=== PATIENT | male | born 2000 | race Caucasian/White ===

== ENCOUNTER 2022-06-27 03:51 | Inpatient (IN) ==
[2022-06-27] MEDS ORDERED: SODIUM CHLORIDE 0.9% 1000ML 1,000 ML IV ONE ×2 (04:36→10:55)
[2022-06-27 05:15] LABS: Basophils # (auto) 0.01 K/uL (0-0.2); Basophils % (auto) 0.3 %; Hematocrit (blood only) 22.1 % (42.0-52.0); Hemoglobin 7.1 g/dl (14.0-18.0); Immature Granulocytes # (auto) 0.03 K/uL (0.01-0.20); Lymphocytes # (auto) 0.82 K/uL (1.2-3.4); Mean Corpuscular Hemoglobin 31.3 pg (25.0-34.0); Mean Corpuscular Hgb Conc 32.1 g/dL (32.0-36.0); Mean Corpuscular Volume 97.4 fL (80.0-100.0); Mean Platelet Volume 10.9 fL (9.4-12.4); Monocytes # (auto) 0.22 K/uL (0.11-0.59); Monocytes % (auto) 7.2 %; Neutrophils # (auto) 1.96 K/uL (1.40-6.50); Neutrophils % (auto) 64.5 %; Platelet Count 106 K/uL (130-400); RDW Standard Deviation 45.9 fL (36.4-46.3); Red Blood Count 2.27 M/uL (4.70-6.10); White Blood Count 3.04 K/ul (4.8-10.8)
[2022-06-27 05:23] LABS: Acetaminophen < 3 ug/ml (10-30); Salicylate < 3.0 mg/dl (3.0-30)
[2022-06-27 05:27] LABS: Alanine Aminotransferase 20 U/L (7-52); Albumin Globulin Ratio 1.5 (0.9-2); Albumin Level 4.8 gm/dl (3.4-5.0); Alkaline Phosphatase 71 U/L (34-104); Anion Gap 11 (3-11); Aspartate Aminotransferase 39 U/L (13-39); Bilirubin,Total 0.7 mg/dl (0.2-1.0); Blood Urea Nitrogen 9 mg/dl (6-23); Calcium 9.1 mg/dl (8.5-10.1); Carbon Dioxide 24 mmol/L (21-32); Chloride 107 mmol/L (98-107); Est GFR (African American) 124.1 ml/min; Est GFR (Non-African American) 107.1 ml/min; Globulin 3.2 gm/dl (2.5-4.0); Glucose 91 mg/dl (70-99(Fasting)); Sodium 142 mmol/L (136-145)
[2022-06-27 05:42] LABS: RBC Morphology Unremarkable
[2022-06-27 06:39] LABS: Basophils # (auto) 0.04 K/uL (0-0.2); Basophils % (auto) 0.6 %; Eosinophils # (auto) 0.01 K/uL (0-0.50); Eosinophils % (auto) 0.1 %; Hematocrit (blood only) 43.1 % (42.0-52.0); Hemoglobin 14.7 g/dl (14.0-18.0); Immature Granulocytes # (auto) 0.07 K/uL (0.01-0.20); Lymphocytes # (auto) 2.15 K/uL (1.2-3.4); Lymphocytes % (auto) 29.6 %; Mean Corpuscular Hemoglobin 30.7 pg (25.0-34.0); Mean Corpuscular Hgb Conc 34.1 g/dL (32.0-36.0); Monocytes # (auto) 0.75 K/uL (0.11-0.59); Monocytes % (auto) 10.3 %; Neutrophils # (auto) 4.24 K/uL (1.40-6.50); Neutrophils % (auto) 58.4 %; Platelet Count 224 K/uL (130-400); RDW Coefficient of Variation 12.9 % (11.5-14.5); RDW Standard Deviation 42.2 fL (36.4-46.3); Red Blood Count 4.79 M/uL (4.70-6.10); White Blood Count 7.26 K/ul (4.8-10.8)
--- NOTE | 2022-06-27 06:57 | Emergency Department Note ---
Impression & Plan Intentional overdose The case was signed out at change of shift to Dr. Richey ED Provider Note NAME: DAFNE VELASQUEZ AGE: 21 SEX: M ARRIVES VIA: Ambulance INFORMANT: Patient and EMS ED PROVIDER(S): Yamilex Logan DO CHIEF COMPLAINT: Intentional overdose PLAN: Disposition: The case was signed out to Dr. Richey awaiting evaluation by ED psychiatric rehabilitation case coordinator Condition: Stable MEDICAL DECISION MAKING: This is a 21-year-old male patient who took an intentional overdose of clonazepam and fluoxetine in an effort to kill himself. He also admits to drinking alcohol and taking Jaz earlier in the evening. Patient does have a history of depression and anxiety. The patient was awaiting sobriety so that he can be formally evaluated from a psychiatric standpoint. Observation began at 410 and was necessary in order for the patient to become more sober and to preclude an unnecessary admission. Patient was frequently evaluated during their observation. Observation is ongoing and the case was signed out Triage Nursing notes reviewed and agree with them. Vital Signs: reviewed and remarkable for tachycardia Differential diagnosis: Accidental overdose, polysubstance overdose, alcohol overdose, suicide attempt ER treatment provided: Cardiac monitoring Twelve-lead EKG IV normal saline bolus Diagnostics interpreted by me: ECG: Normal sinus rhythm at [address] segment elevation or signs of ischemia. There are inverted P waves in leads V2 and V3. There is no obvious ectopy. Cardiac Monitoring: Normal sinus rhythm at 93 Laboratory studies: See below HPI: 21/M arrives for evaluation of overdose. Patient admits to drinking alcohol and taking Jaz earlier this evening. He admits to trying to kill himself by taking clonazepam and fluoxetine. He states that he finished off a bottle of the clonazepam and fluoxetine. He believes that there was approximately 10 clonazepam left and approximately 20 fluoxetine left in the 2 bottles. The fluoxetine were 40 mg and the clonazepam more 0.5 mg. Other medications found near him were bupropion, Vistaril, and propranolol. Patient states that he hoped that the overdose would stop his heart. PAST MEDICAL HISTORY:Depression and anxiety PAST SURGICAL HISTORY:See Below FAMILY HISTORY:See Below SOCIAL HISTORY:Patient is a student at [employer]; he is from [place], [place] HOME MEDICATIONS:See list ALLERGIES:None VITALS:See Below PHYSICAL EXAMINATION: HEENT: Head - normocephalic and atraumatic. Pupils are equal, round, and reactive to light. Extraocular eye muscles are intact, and sclera are anic teric. Nose - moist nasal mucosa without discharge. Mouth - moist buccal mucosa. Oropharynx is nonerythematous and there is no tonsillar exudate or edema noted. Neck: Supple; no cervical lymphadenopathy appreciated Heart: Tachycardic rate and rhythm. There is a normal S1 and S2 with no murmurs, clicks, or gallops appreciated. Lungs: Clear to auscultation bilaterally with no wheezes, rales, or rhonchi. Abdomen: Soft, completely nontender, nondistended, with good bowel sounds. There are no palpable pulsatile masses or hepatosplenomegaly. There is no guarding, rigidity, or rebound noted. Extremities: No evidence of cyanosis, clubbing, or edema. There are easily palpable peripheral pulses. Skin: warm and dry with good turgor and no rashes. Psych: The patient was slightly lethargic on exam but does admit to taking an overdose of fluoxetine and clonazepam in an effort to kill himself. He states that he quite frequently feels "blue." ED COURSE: Times/Reassessments: 410: The patient was evaluated in room B7. A complete history and physical was performed. An IV lock was initiated and labs were drawn as above. The patient was bolused with IV normal saline solution. A twelve-lead EKG was obtained as described above. An order was placed for continuous cardiac monitoring. The patient was in a normal sinus rhythm at a rate of 93. The patient was made one-to-one because of his suicide attempt. The patient was frequently assessed during observation. Yamilex Logan DO Past Med/Surg History Social History Smoking Status: Never smoker Feels Safe at Home: Yes Gender Identity: Male Home Meds Home Medications Medication Instructions Recorded Confirmed bupropion HCl 1 tab 1XD 06/27/22 06/27/22 bupropion HCl 150 mg tablet,12 hr mg PO 06/27/22 sustained-release clonazepam 1 tab 1XD PRN Anxiety 06/27/22 06/27/22 fluoxetine 20 mg capsule mg 06/27/22 fluoxetine 40 mg capsule mg 06/27/22 hydroxyzine pamoate 25 mg capsule mg 06/27/22 propranolol 10 mg tablet mg 06/27/22 Results & Data (ED) Vital Signs Vital Signs - 24 hr 06/27/22 04:08 06/27/22 04:39 06/27/22 04:05 Temperature 36.6 C Temperature Source Oral Pulse Rate 106 H 104 H Pulse Rate from SpO2 Sensor 105 H Respiratory Rate 22 12 Respiratory Effort / Characteristics Non-Labored Spontaneous Respiratory Depth Normal Blood Pressure 116/87 Blood Pressure Mean 96 Pulse Oximetry 96 97 98 Oxygen Delivery Method Room Air Room Air Room Air Sepsis Recent Fever Within 48 Hours No Sepsis New/Unexplained Change in Mental Status N/A Sepsis Action Taken by Nursing No Action Required 06/27/22 04:30 06/27/22 04:47 06/27/22 04:05 Temperature Temperature Source Pulse Rate 103 H 96 H 108 H Pulse Rate from SpO2 Sensor 104 H 97 H Respiratory Rate 15 14 Respiratory Effort / Characteristics Respiratory Depth Blood Pressure 124/77 Blood Pressure Mean 92 Pulse Oximetry 96 98 Oxygen Delivery Method Room Air Room Air Sepsis Recent Fever Within 48 Hours Sepsis New/Unexplained Change in Mental Status Sepsis Action Taken by Nursing 06/27/22 05:30 06/27/22 06:00 06/27/22 08:06 Temperature Temperature Source Pulse Rate 96 H 93 H 88 Pulse Rate from SpO2 Sensor 96 H 94 H Respiratory Rate 14 18 Respiratory Effort / Characteristics Respiratory Depth Blood Pressure 137/73 118/70 Blood Pressure Mean 94 86 Pulse Oximetry 97 96 Oxygen Delivery Method Room Air Room Air Sepsis Recent Fever Within 48 Hours Sepsis New/Unexplained Change in Mental Status Sepsis Action Taken by Nursing 06/27/22 07:00 06/27/22 07:00 06/27/22 07:30 Temperature Temperature Source Pulse Rate 92 H Pulse Rate from SpO2 Sensor 92 H Respiratory Rate 18 Respiratory Effort / Characteristics Respiratory Depth Blood Pressure 98/39 L 90/42 L Blood Pressure Mean 58 58 Pulse Oximetry 95 Oxygen Delivery Method Sepsis Recent Fever Within 48 Hours Sepsis New/Unexplained Change in Mental Status Sepsis Action Taken by Nursing 06/27/22 07:30 06/27/22 08:00 06/27/22 08:30 Temperature Temperature Source Pulse Rate 90 92 H Pulse Rate from SpO2 Sensor 90 91 H Respiratory Rate 17 15 Respiratory Effort / Characteristics Respiratory Depth Blood Pressure 132/72 Blood Pressure Mean 92 Pulse Oximetry 96 95 Oxygen Delivery Method Sepsis Recent Fever Within 48 Hours Sepsis New/Unexplained Change in Mental Status Sepsis Action Taken by Nursing 06/27/22 08:30 06/27/22 09:00 06/27/22 09:00 Temperature Temperature Source Pulse Rate 96 H 97 H Pulse Rate from SpO2 Sensor 96 H 96 H Respiratory Rate 15 4 L Respiratory Effort / Characteristics Respiratory Depth Blood Pressure 131/88 Blood Pressure Mean 102 Pulse Oximetry 100 98 Oxygen Delivery Method Sepsis Recent Fever Within 48 Hours Sepsis New/Unexplained Change in Mental Status Sepsis Action Taken by Nursing 06/27/22 09:30 06/27/22 09:52 06/27/22 09:52 Temperature Temperature Source Pulse Rate 101 H 100 H Pulse Rate from SpO2 Sensor 103 H Respiratory Rate 10 L 23 Respiratory Effort / Characteristics Respiratory Depth Blood Pressure 120/82 Blood Pressure Mean 94 Pulse Oximetry 97 Oxygen Delivery Method Sepsis Recent Fever Within 48 Hours Sepsis New/Unexplained Change in Mental Status Sepsis Action Taken by Nursing 06/27/22 10:00 06/27/22 10:00 06/27/22 10:30 Temperature Temperature Source Pulse Rate 101 H 97 H Pulse Rate from SpO2 Sensor 101 H 96 H Respiratory Rate 18 23 Respiratory Effort / Characteristics Respiratory Depth Blood Pressure 127/73 Blood Pressure Mean 91 Pulse Oximetry 100 99 Oxygen Delivery Method Sepsis Recent Fever Within 48 Hours Sepsis New/Unexplained Change in Mental Status Sepsis Action Taken by Nursing 06/27/22 11:00 06/27/22 11:00 06/27/22 11:30 Temperature Temperature Source Pulse Rate 102 H 98 H Pulse Rate from SpO2 Sensor 101 H 97 H Respiratory Rate 19 24 Respiratory Effort / Characteristics Respiratory Depth Blood Pressure 118/75 Blood Pressure Mean 89 Pulse Oximetry 98 99 Oxygen Delivery Method Room Air Room Air Sepsis Recent Fever Within 48 Hours Sepsis New/Unexplained Change in Mental Status Sepsis Action Taken by Nursing 06/27/22 12:00 06/27/22 12:00 06/27/22 12:06 Temperature Temperature Source Pulse Rate 102 H 99 H Pulse Rate from SpO2 Sensor 102 H Respiratory Rate 21 Respiratory Effort / Characteristics Respiratory Depth Blood Pressure 119/67 Blood Pressure Mean 84 Pulse Oximetry 99 Oxygen Delivery Method Room Air Sepsis Recent Fever Within 48 Hours Sepsis New/Unexplained Change in Mental Status Sepsis Action Taken by Nursing 06/27/22 12:30 06/27/22 13:00 06/27/22 13:00 Temperature Temperature Source Pulse Rate 104 H 98 H Pulse Rate from SpO2 Sensor 105 H 99 H Respiratory Rate 18 25 H Respiratory Effort / Characteristics Respiratory Depth Blood Pressure 115/73 Blood Pressure Mean 87 Pulse Oximetry 98 98 Oxygen Delivery Method Room Air Room Air Sepsis Recent Fever Within 48 Hours Sepsis New/Unexplained Change in Mental Status Sepsis Action Taken by Nursing 06/27/22 13:40 06/27/22 13:43 06/27/22 13:43 Temperature Temperature Source Pulse Rate 101 H Pulse Rate from SpO2 Sensor 111 H 101 H Respiratory Rate 23 Respiratory Effort / Characteristics Respiratory Depth Blood Pressure 132/97 Blood Pressure Mean 108 Pulse Oximetry 97 96 Oxygen Delivery Method Room Air Room Air Sepsis Recent Fever Within 48 Hours Sepsis New/Unexplained Change in Mental Status Sepsis Action Taken by Nursing 06/27/22 14:00 06/27/22 14:00 06/27/22 14:30 Temperature Temperature Source Pulse Rate 98 H Pulse Rate from SpO2 Sensor 97 H Respiratory Rate 22 Respiratory Effort / Characteristics Respiratory Depth Blood Pressure 122/75 119/62 Blood Pressure Mean 90 81 Pulse Oximetry 97 Oxygen Delivery Method Room Air Sepsis Recent Fever Within 48 Hours Sepsis New/Unexplained Change in Mental Status Sepsis Action Taken by Nursing 06/27/22 14:30 Temperature Temperature Source Pulse Rate 96 H Pulse Rate from SpO2 Sensor 96 H Respiratory Rate 22 Respiratory Effort / Characteristics Respiratory Depth Blood Pressure Blood Pressure Mean Pulse Oximetry 95 Oxygen Delivery Method Room Air Sepsis Recent Fever Within 48 Hours Sepsis New/Unexplained Change in Mental Status Sepsis Action Taken by Nursing Laboratory Data 06/27/22 05:56 06/27/22 04:15 Lab Results 06/27/22 06/27/22 06/27/22 Range/Units 04:15 04:15 04:15 WBC 3.04 L (4.8-10.8) K/ul RBC 2.27 L (4.70-6.10) M/uL Hgb 7.1 L (14.0-18.0) g/dl Hct 22.1 L (42.0-52.0) % MCV 97.4 (80.0-100.0) fL MCH 31.3 (25.0-34.0) pg MCHC 32.1 (32.0-36.0) g/dL RDW Std Deviation 45.9 (36.4-46.3) fL RDW Coeff of Chelita 13.0 (11.5-14.5) % Plt Count 106 L (130-400) K/uL MPV 10.9 (9.4-12.4) fL Immature Gran % (Auto) 1.0 % Neut % (Auto) 64.5 % Lymph % (Auto) 27.0 % Holmes % (Auto) 7.2 % Eos % (Auto) 0.0 % Baso % (Auto) 0.3 % Neut # (Auto) 1.96 (1.40-6.50) K/uL Lymph # (Auto) 0.82 L (1.2-3.4) K/uL Holmes # (Auto) 0.22 (0.11-0.59) K/uL Eos # (Auto) 0.00 (0-0.50) K/uL Baso # (Auto) 0.01 (0-0.2) K/uL Immature Gran # (Auto) 0.03 (0.01-0.20) K/uL RBC Morphology Unremarkable Sodium 142 (136-145) mmol/L Potassium 4.0 (3.5-5.1) mmol/L Chloride 107 (98-107) mmol/L Carbon Dioxide 24 (21-32) mmol/L Anion Gap 11 (3-11) BUN 9 (6-23) mg/dl Creatinine 1.00 (0.6-1.4) mg/dl Est Cr Clr Drug Dosing Not Reportable Est GFR ( Amer) 124.1 ml/min Est GFR (Non-Af Amer) 107.1 ml/min BUN/Creatinine Ratio 9.0 L (10-20) Glucose 91 (70-99(Fasting)) mg/dl Calcium 9.1 (8.5-10.1) mg/dl Total Bilirubin 0.7 (0.2-1.0) mg/dl AST 39 (13-39) U/L ALT 20 (7-52) U/L Alkaline Phosphatase 71 (34-104) U/L Total Protein 8.0 (6.0-8.3) gm/dl Albumin 4.8 (3.4-5.0) gm/dl Globulin 3.2 (2.5-4.0) gm/dl Albumin/Globulin Ratio 1.5 (0.9-2) Urine Color Urine Appearance (Clear) Urine pH (4.5-7.5) Ur Specific [place] (1.000-1.030) Urine Protein (Negative) Urine Glucose (UA) (Negative) Urine Ketones (Negative) Urine Blood (Negative) Urine Nitrite (Negative) Urine Bilirubin (Negative) Urine Urobilinogen (Negative) Ur Leukocyte Esterase (Negative) Salicylates < 3.0 L (3.0-30) mg/dl Urine Opiates Screen (Neg) Ur Methadone, Qual (Neg) Acetaminophen < 3 L (10-30) ug/ml Urine Barbiturates (Neg) Ur Phencyclidine (PCP) (Neg) U Amphetamin/Meth Scrn (Neg) MDMA (Ecstasy) Screen (Neg) U Benzodiazepines Scrn (Neg) Ur Cocaine Metabolite (Neg) U Marijuana (THC) Screen (Neg) Ethyl Alcohol mg/dL (<10.0) mg/dl SARS-CoV-2, RNA, NAAT (NEGATIVE) 06/27/22 06/27/22 06/27/22 Range/Units 04:15 04:41 05:56 WBC 7.26 (4.8-10.8) K/ul RBC 4.79 (4.70-6.10) M/uL Hgb 14.7 D (14.0-18.0) g/dl Hct 43.1 (42.0-52.0) % MCV 90.0 D (80.0-100.0) fL MCH 30.7 (25.0-34.0) pg MCHC 34.1 (32.0-36.0) g/dL RDW Std Deviation 42.2 (36.4-46.3) fL RDW Coeff of Chelita 12.9 (11.5-14.5) % Plt Count 224 D (130-400) K/uL MPV 11.0 (9.4-12.4) fL Immature Gran % (Auto) 1.0 % Neut % (Auto) 58.4 % Lymph % (Auto) 29.6 % Holmes % (Auto) 10.3 % Eos % (Auto) 0.1 % Baso % (Auto) 0.6 % Neut # (Auto) 4.24 (1.40-6.50) K/uL Lymph # (Auto) 2.15 (1.2-3.4) K/uL Holmes # (Auto) 0.75 H (0.11-0.59) K/uL Eos # (Auto) 0.01 (0-0.50) K/uL Baso # (Auto) 0.04 (0-0.2) K/uL Immature Gran # (Auto) 0.07 (0.01-0.20) K/uL RBC Morphology Sodium (136-145) mmol/L Potassium (3.5-5.1) mmol/L Chloride (98-107) mmol/L Carbon Dioxide (21-32) mmol/L Anion Gap (3-11) BUN (6-23) mg/dl Creatinine (0.6-1.4) mg/dl Est Cr Clr Drug Dosing Est GFR ( Amer) ml/min Est GFR (Non-Af Amer) ml/min BUN/Creatinine Ratio (10-20) Glucose (70-99(Fasting)) mg/dl Calcium (8.5-10.1) mg/dl Total Bilirubin (0.2-1.0) mg/dl AST (13-39) U/L ALT (7-52) U/L Alkaline Phosphatase (34-104) U/L Total Protein (6.0-8.3) gm/dl Albumin (3.4-5.0) gm/dl Globulin (2.5-4.0) gm/dl Albumin/Globulin Ratio (0.9-2) Urine Color Urine Appearance (Clear) Urine pH (4.5-7.5) Ur Specific [place] (1.000-1.030) Urine Protein (Negative) Urine Glucose (UA) (Negative) Urine Ketones (Negative) Urine Blood (Negative) Urine Nitrite (Negative) Urine Bilirubin (Negative) Urine Urobilinogen (Negative) Ur Leukocyte Esterase (Negative) Salicylates (3.0-30) mg/dl Urine Opiates Screen (Neg) Ur Methadone, Qual (Neg) Acetaminophen (10-30) ug/ml Urine Barbiturates (Neg) Ur Phencyclidine (PCP) (Neg) U Amphetamin/Meth Scrn (Neg) MDMA (Ecstasy) Screen (Neg) U Benzodiazepines Scrn (Neg) Ur Cocaine Metabolite (Neg) U Marijuana (THC) Screen (Neg) Ethyl Alcohol mg/dL 205.8 H (<10.0) mg/dl SARS-CoV-2, RNA, NAAT NEGATIVE (NEGATIVE) 06/27/22 06/27/22 Range/Units 10:35 10:35 WBC (4.8-10.8) K/ul RBC (4.70-6.10) M/uL Hgb (14.0-18.0) g/dl Hct (42.0-52.0) % MCV (80.0-100.0) fL MCH (25.0-34.0) pg MCHC (32.0-36.0) g/dL RDW Std Deviation (36.4-46.3) fL RDW Coeff of Chelita (11.5-14.5) % Plt Count (130-400) K/uL MPV (9.4-12.4) fL Immature Gran % (Auto) % Neut % (Auto) % Lymph % (Auto) % Holmes % (Auto) % Eos % (Auto) % Baso % (Auto) % Neut # (Auto) (1.40-6.50) K/uL Lymph # (Auto) (1.2-3.4) K/uL Holmes # (Auto) (0.11-0.59) K/uL Eos # (Auto) (0-0.50) K/uL Baso # (Auto) (0-0.2) K/uL Immature Gran # (Auto) (0.01-0.20) K/uL RBC Morphology Sodium (136-145) mmol/L Potassium (3.5-5.1) mmol/L Chloride (98-107) mmol/L Carbon Dioxide (21-32) mmol/L Anion Gap (3-11) BUN (6-23) mg/dl Creatinine (0.6-1.4) mg/dl Est Cr Clr Drug Dosing Est GFR ( Amer) ml/min Est GFR (Non-Af Amer) ml/min BUN/Creatinine Ratio (10-20) Glucose (70-99(Fasting)) mg/dl Calcium (8.5-10.1) mg/dl Total Bilirubin (0.2-1.0) mg/dl AST (13-39) U/L ALT (7-52) U/L Alkaline Phosphatase (34-104) U/L Total Protein (6.0-8.3) gm/dl Albumin (3.4-5.0) gm/dl Globulin (2.5-4.0) gm/dl Albumin/Globulin Ratio (0.9-2) Urine Color Yellow Urine Appearance Clear (Clear) Urine pH 5.5 (4.5-7.5) Ur Specific [place] 1.009 (1.000-1.030) Urine Protein Negative (Negative) Urine Glucose (UA) Negative (Negative) Urine Ketones Negative (Negative) Urine Blood Negative (Negative) Urine Nitrite Negative (Negative) Urine Bilirubin Negative (Negative) Urine Urobilinogen Negative (Negative) Ur Leukocyte Esterase Negative (Negative) Salicylates (3.0-30) mg/dl Urine Opiates Screen Neg (Neg) Ur Methadone, Qual Neg (Neg) Acetaminophen (10-30) ug/ml Urine Barbiturates Neg (Neg) Ur Phencyclidine (PCP) Neg (Neg) U Amphetamin/Meth Scrn Pos H (Neg) MDMA (Ecstasy) Screen Pos H (Neg) U Benzodiazepines Scrn Neg (Neg) Ur Cocaine Metabolite Neg (Neg) U Marijuana (THC) Screen Neg (Neg) Ethyl Alcohol mg/dL (<10.0) mg/dl SARS-CoV-2, RNA, NAAT (NEGATIVE) Administered Medications Discontinued Medications Famotidine (Famotidine 20 Mg Tab) 20 mg PO NOW ONE Stop: 06/27/22 13:48 Last Admin: 06/27/22 13:55 Dose: 20 mg Documented By: LILLIAM Sodium Chloride (Nss 1000ml) 1,000 mls @ 999 mls/hr IV .Q1H1M ONE Stop: 06/27/22 05:36 Last Infusion: 06/27/22 05:46 Dose: 0 mls/hr Documented By: Admin: 06/27/22 04:45 Dose: 999 mls/hr Documented By: MARTA Sodium Chloride (Nss 1000ml) 1,000 mls @ 999 mls/hr IV .Q1H1M ONE Stop: 06/27/22 11:55 Last Infusion: 06/27/22 12:14 Dose: 0 mls/hr Documented By: Admin: 06/27/22 11:13 Dose: 999 mls/hr Documented By: SONJA Lorazepam (Lorazepam 1 Mg Tab) 1 mg SL NOW STA Stop: 06/27/22 09:21 Last Admin: 06/27/22 09:27 Dose: 1 mg Documented By: Ondansetron HCl (Ondansetron 4 Mg Od Tab) 4 mg PO NOW STA Stop: 06/27/22 13:48 Last Admin: 06/27/22 13:55 Dose: 4 mg Documented By: AMS Discharge Plan Visit Data Chief Complaint: Overdose (Intentional) Stated Complaint: OVERDOSE ED Provider: Suni Richey Discharge Problem: Intentional overdose Forms Stand Alone Forms: [facility], Suicide Prevention Resources Prescriptions Prescriptions: No Action bupropion HCl 150 MG tablet 1 tab 1XD clonazepam 0.5 mg tablet 1 tab 1XD PRN (Reason: Anxiety) fluoxetine 20 mg capsule bupropion HCl 150 mg tablet sustained-release 12 hr PO hydroxyzine pamoate 25 mg capsule fluoxetine 40 mg capsule propranolol 10 mg tablet Referrals Referrals: PCP,NO [Physician] - Intentional overdose Qualifiers: Encounter type: initial encounter Qualified Code(s): T50.902A - Poisoning by unspecified drugs, medicaments and biological substances, intentional self-harm, initial encounter
--- NOTE | 2022-06-27 07:46 | Electrocardiogram Report ---
Test Reason : Blood Pressure : / mmHG Vent. Rate : 099 BPM Atrial Rate : 099 BPM P-R Int : 136 ms QRS Dur : 082 ms QT Int : 342 ms P-R-T Axes : 066 057 058 degrees QTc Int : 438 ms Normal sinus rhythm Minimal voltage criteria for LVH, may be normal variant Nonspecific T wave abnormality Abnormal ECG No previous ECGs available Confirmed by lAton Wilks ([id number]) on 06/27/2022 7:45:40 AM Referred By: ER Confirmed By:Juan Wilks
[2022-06-27] MEDS ORDERED: LORazepam 1 MG TAB SL STA (09:20)
--- NOTE | 2022-06-27 10:33 | Electrocardiogram Report ---
Test Reason : Blood Pressure : / mmHG Vent. Rate : 092 BPM Atrial Rate : 092 BPM P-R Int : 122 ms QRS Dur : 084 ms QT Int : 362 ms P-R-T Axes : 070 052 054 degrees QTc Int : 447 ms Normal sinus rhythm Voltage criteria for left ventricular hypertrophy Nonspecific T wave abnormality Abnormal ECG When compared with ECG of 27-JUN-2022 04:44, No significant change was found Confirmed by Alton Wilks ([id number]) on 06/27/2022 10:33:27 AM Referred By: Confirmed By:Juan Wilks
[2022-06-27 10:57] LABS: Appearance Urine Clear (Clear); Bilirubin Urine Negative (Negative); Blood Urine Negative (Negative); Color Urine Yellow; Glucose Urine UA Negative (Negative); Ketones Urine Negative (Negative); Leukocyte Esterase Urine Negative (Negative); Nitrite Urine Negative (Negative); Protein Urine Negative (Negative); Specific Gravity Urine 1.009 (1.000-1.030); Urobilinogen Urine Negative (Negative); pH Urine 5.5 (4.5-7.5)
[2022-06-27 11:30] LABS: Amphetamines+Metham, Urine Pos (Neg); Barbiturates, Urine Neg (Neg); Benzodiazepine, Urine Neg (Neg); Cocaine, Urine Neg (Neg); MDMA (Ecstacy), Urine Pos (Neg); Methadone, Urine Neg (Neg); Opiate, Urine Neg (Neg); Phencyclidine, Urine Neg (Neg)
--- NOTE | 2022-06-27 12:16 | Emergency Department Note ---
ED Visit Note I received this patient in signout at the change of shift from Dr. Logan pending medical clearance. Patient became somewhat jittery with some shaking of the extremities distally. This is felt to be due to the multiple substances used last night. Patient given 1 mg of SL Ativan. I suspect the patient's SSRI overdose effects are persisting and the clonazepam he took last night has worn off. Patient is also positive for amphetamines in the urine and admits to taking Jaz last night. Nonetheless the patient is coherent on my reevaluation and able to answer questions appropriately. He is felt to be medically cleared. Mental health outsole caser did evaluate the patient and he has agreed to sign in voluntarily. The 302 warrant was denied. A repeat EKG was obtained at the request of the psychiatrist. QTc remains normal. EKG reveals a normal sinus rhythm at 92 bpm. Nonspecific T wave abnormality, voltage criteria for LVH. QTc is 447. No PVC, no PAC. When compared to previous on same date at 0444, no significant changes have been found. The patient did ambulate to the bathroom and became nauseated and vomited x1. He was given Zofran 4 mg ODT and Pepcid 20 mg tablet. On my reevaluation the patient, he was feeling much improved. He tolerated a light snack and was feeling well. He was texting his roommate. Patient has been evaluated by 3 S. and accepted for admission on a voluntary basis. . 302 Evaluation Medically Cleared Patient was medically cleared for exam to determine need for immediate mental health treatment at 0900 on 06/27/2022
[2022-06-27] MEDS ORDERED: ONDANSETRON 4 MG OD TAB PO STA (13:47)
[2022-06-27] MEDS ORDERED: FAMOTIDINE 20 MG TAB PO ONE (13:47)
[2022-06-27] MEDS ORDERED: SODIUM CHLORIDE 0.65% NA SOLN 45 ML (OCEAN) PRN (17:45)
[2022-06-27] MEDS ORDERED: ALUMINUM/MAGNESIUM SUSP 30 ML UDC PO PRN (17:45)
[2022-06-27] MEDS ORDERED: ACETAMINOPHEN 325 MG TAB PO PRN (17:45)
[2022-06-27] MEDS ORDERED: BISMUTH SUBSALICYLATE LIQD 236 ML PO PRN (17:45)
[2022-06-27] MEDS ORDERED: MAGNESIUM HYDROXIDE SUSP 30 ML UDC PO PRN (17:45)
[2022-06-27] MEDS ORDERED: Ativan PO Alcohol Withdrawal--Active Protocol PO PRN (17:46)
[2022-06-27] MEDS ORDERED: LORazepam 1 MG TAB PO PRN ×3 (17:46)
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
[2022-06-28] MEDS ORDERED: MELATONIN 3 MG TAB PO PRN (12:31)
--- NOTE | 2022-06-29 14:21 | Psychiatric Progress Note ---
Date of Service June 29, 2022 Impression / Recommendations Impression Juanito is a 21 year old man and [employer] student with a history of depression and anxiety who was admitted for suicide attempt via polypharmacy overdose. Diagnostically consistent with persistent depressive disorder vs MDD, generalized anxiety disorder and alcohol use disorder with possible substance- induced mood component. He is deemed in need of psychiatric hospitalization for diagnostic clarification, safety and stabilization, medication management and development of further coping skills. 06/29/2022: Still with depression and anxiety and s/p significant overdose attempt. Still with some lingering shakiness, seems most consistent with ongoing effects from fluoxetine ingestion. Vitals reassuring and no signs of alcohol withdrawal. Discussed medication treatment options in detail. Discussed risks, benefits and alternatives. Patient would like to start and consented to mirtazapine for insomnia, depression, anxiety.Reviewed side effects including but not limited to: sedation, increased appetite, black box warning for SI. (1) Persistent depressive disorder with anxious distress, currently severe: (2) Intentional overdose: (3) ARSH (generalized anxiety disorder): (4) Alcohol use disorder, moderate, dependence: Plan 06/29/2022: Start mirtazapine 7.5mg HS 06/28/2022: The patient was admitted to the [facility] ([facility] mental health unit) on q15 min checks (behavioral with suicide precautions) for safety. The patient will participate in group, recreational, and milieu therapies and will be offered additional individual and family sessions as clinically appropriate. -Holding psychotropic medications for now in setting of overdose -Melatonin 3mg HS prn for insomnia -AWSS, not currently scoring and likely will not given clonazepam ingestion as part of suicide attempt Inventory Assets Strengths: supportive relationships, willing to get treatment Needs: safety and stabilization, medication adjustment, additional coping skills, increased outpatient services Suicide Risk Level Suicide Risk Level: High-Moderate (q15 min suicide checks) (severe depression s/p suicide attempt prior to admission but currently denies SI and feels safe in the hospital, able to safety contract and agrees to let nursing/staff know should they develop plan, intent or feel unable to remain safe. 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 Chief Complaint "I'm still a little shaky". Review of Systems Sleep Information Total Hours of Sleep: 7 Meal Information Percent Meal Consumed - Breakfast: 100 Percent Meal Consumed - Lunch: 100 Percent Meal Consumed - Dinner: 100 Subjective Subjective Patient was seen & assessed and interval progress reviewed with treatment team nursing and social work. He slept well last night and today no longer feels unsteady at all but still with some shakiness though it is improved from yesterday. Not scoring on AWSS. Discussed likely ongoing side effect from fluoxetine given long-half life. He denies any other symptoms or physical complaints. Had increased anxiety last night. Feels his mood is more stable in the hospital. Physical Exam Psychiatric Orientation: alert and oriented x 3 Apperance: appropriately dressed and appropriately groomed Eye Contact: good eye contact Motor Behavior: no abnormal motor movements Speech: normal rate/rhythm/volume of speech Affect: + depressed affect and + anxious affect Mood: + depressed mood and + anxious mood Thought Process: goal directed thought process Thought Content: reality based without delusions Suicidal Thoughts: denies suicidal plan (but s/p overdose) and denies suicidal intent; + reports suicidal thoughts (passive SI intermittently and s/p overdose and ambivalent about being alive) Homicidal Thoughts: denies homicidal thoughts Hallucinations: no auditory hallucinations and no visual hallucinations Cognition: recent memory grossly intact, remote memory grossly intact, attention grossly intact and language grossly intact Estimated Intelligence: consistent with education level Insight: + limited insight Judgment: + limited judgement Vital Signs (Past 24 Hours) Last Vital Signs Temp 36.7 C 06/29/22 10:16 Pulse 88 06/29/22 10:16 Resp 16 06/29/22 10:16 BP 121/74 06/29/22 10:16 Pulse Ox 98 06/28/22 06:00 O2 Del Method Room Air 06/28/22 06:00 Results & Data ([facility]) Current Inpatient Medications Current Inpatient Medications: Current Inpatient Medications Acetaminophen (Acetaminophen 325 Mg Tab) 650 mg PO Q4H PRN PRN Reason: Headache or Minor Fever Stop: 07/27/22 17:44 Al Hydrox/Mg Hydrox/Simethicone (Aluminum/Magnesium Susp 30 Ml Udc) 30 ml PO Q4H PRN PRN Reason: GI Upset Stop: 07/27/22 17:44 Bismuth Subsalicylate (Bismuth Subsalicylate Liqd 236 Ml) 15 ml PO PRN PRN PRN Reason: Loose Stool Stop: 07/27/22 17:44 Lorazepam (Lorazepam 1 Mg Tab) 2 mg PO UD PRN; Protocol PRN Reason: EtOH Withdrawal AWSS Score 8,9 Stop: 07/27/22 17:45 Lorazepam (Lorazepam 1 Mg Tab) 3 mg PO ONCE PRN; Protocol PRN Reason: EtOH Withdrawal AWSS Score 10 & above Lorazepam (Lorazepam 1 Mg Tab) 1 mg PO UD PRN; Protocol PRN Reason: EtOH Withdrawal AWSS Score 6,7 Stop: 07/27/22 17:45 Magnesium Hydroxide (Magnesium Hydroxide Susp 30 Ml Udc) 30 ml PO DAILY PRN PRN Reason: Constipation Stop: 07/27/22 17:44 Melatonin (Melatonin 3 Mg Tab) 3 mg PO HS PRN PRN Reason: Sleep Stop: 07/28/22 12:30 Sodium Chloride (Sodium Chloride 0.65% Na Soln 45 Ml ([place])) 1 - 2 sprays NA PRN PRN PRN Reason: Nasal Dryness/Congestion Stop: 07/27/22 17:44 Mental Health & Subst Abuse Tx Psychiatrist Name of Psychiatrist: Dr. Felix Therapist Name of Therapist: Evelyn Rossi Medicare Sales Executive Name of Medicare Sales Executive: [employer] Phone Number for Medicare Sales Executive: [phone] Case Management Appointment Comment: Please check [employer] email for Zoom link. Post Discharge Appointments Primary Care Physician Name Of Family Doctor/PCP: DANIEL (2) Intentional overdose Encounter type: initial encounter Qualified Code(s): T50.902A - Poisoning by unspecified drugs, medicaments and biological substances, intentional self-harm, initial encounter
[2022-06-29] MEDS: MIRTAZAPINE TAB 15 MG TAB PO SCH (21:40)
--- NOTE | 2022-06-30 11:48 | Psychiatric Progress Note ---
Date of Service June 30, 2022 Impression / Recommendations Impression Juanito is a 21 year old man and [employer] student with a history of depression and anxiety who was admitted for suicide attempt via polypharmacy overdose. Diagnostically consistent with persistent depressive disorder vs MDD, generalized anxiety disorder and alcohol use disorder with possible substance- induced mood component. He is deemed in need of psychiatric hospitalization for diagnostic clarification, safety and stabilization, medication management and development of further coping skills. 06/30/2022: Mood is starting to improve and no signs or symptoms of medication effects from the overdose today. He likes the mirtazapine and wants to continue with this. Discussed medication treatment options in detail including sertraline vs alternative SSRI vs SNRI vs Wellbutrin vs other depression augmentation strategies. Discussed risks, benefits and alternatives. Patient would like to start and consented to duloxetine for MDD vs persistent depressive disorder and ARSH. Reviewed side effects including but not limited to: GI, SAVAGE, sexual side effects, elevated BP, elevated HR, confirmed no family history of sudden cardiac , diaphoresis and counseled on black box warning of potential for emergence of or increased SI and need to let staff know should this occur or should they feel unsafe. Also discussed importance of seeking emergency care following discharge if this side effect occurs in the future. Ongoing motivational interviewing regarding alcohol use. (1) Persistent depressive disorder with anxious distress, currently severe: (2) Intentional overdose: (3) ARSH (generalized anxiety disorder): (4) Alcohol use disorder, moderate, dependence: Plan 07/01/2022: Start duloxetine 30mg daily. Continue mirtazapine 7.5mg HS. 06/29/2022: Start mirtazapine 7.5mg HS 06/28/2022: The patient was admitted to the [facility]) on q15 min checks (behavioral with suicide precautions) for safety. The patient will participate in group, recreational, and milieu therapies and will be offered additional individual and family sessions as clinically appropriate. -Holding psychotropic medications for now in setting of overdose -Melatonin 3mg HS prn for insomnia -AWSS, not currently scoring and likely will not given clonazepam ingestion as part of suicide attempt Inventory Assets Strengths: supportive relationships, willing to get treatment Needs: safety and stabilization, medication adjustment, additional coping skills, increased outpatient services Suicide Risk Level Suicide Risk Level: Moderate (q15 min suicide checks) (severe depression s/p suicide attempt prior to admission but currently mood improving, denies SI and feels safe in the hospital, able to safety contract and agrees to let nursing/staff know should they develop plan, intent or feel unable to remain safe. 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 Chief Complaint "I'm alright". Review of Systems Sleep Information Total Hours of Sleep: 6.5 Meal Information Percent Meal Consumed - Breakfast: 100 Percent Meal Consumed - Lunch: 100 Percent Meal Consumed - Dinner: 100 Subjective Subjective Patient was seen & assessed and interval progress reviewed with treatment team nursing and social work. Participating in groups. Had support meeting with a friend (he preferred this vs having with his parents) that he felt went well. Denies SI, feels his attempt was impulsive. Agrees he tends to do a lot of impulsive things. Discussed upcoming formal and pressures of this and in the fraternity of being around alcohol. he continues to feel he can reduce his alcohol use. Discussed medication assisted treatments as well as local substance use/dual diagnosis options for additional therapy vs IOP vs groups that he's going to consider which could be additional ways to help with his goal of reducing his use. No shakiness today. He slept very well with the mirtazapine, felt a little groggy this morning but found it went away quickly. He felt much less anxious this morning and wants to continue with mirtazapine. He discussed with his mother family history of medication trials and she did not respond well to Effexor but has done well with sertraline. Reviewed this and he recalls being on sertraline in the past before he tried lexapro. Physical Exam Psychiatric Orientation: alert and oriented x 3 Apperance: appropriately dressed and appropriately groomed Eye Contact: good eye contact Motor Behavior: no abnormal motor movements Speech: normal rate/rhythm/volume of speech Affect: + depressed affect and + anxious affect Mood: + depressed mood and + anxious mood Thought Process: goal directed thought process Thought Content: reality based without delusions Suicidal Thoughts: denies suicidal thoughts, denies suicidal plan and denies suicidal intent Homicidal Thoughts: denies homicidal thoughts Hallucinations: no auditory hallucinations and no visual hallucinations Cognition: recent memory grossly intact, remote memory grossly intact, attention grossly intact and language grossly intact Estimated Intelligence: consistent with education level Insight: + limited insight Judgment: + limited judgement Vital Signs (Past 24 Hours) Last Vital Signs Temp 36.6 C 06/30/22 06:24 Pulse 79 06/30/22 06:24 Resp 16 06/30/22 06:24 BP 132/88 06/30/22 06:24 Pulse Ox 96 06/29/22 18:18 O2 Del Method Room Air 06/29/22 18:18 Results & Data ([facility]) Current Inpatient Medications Current Inpatient Medications: Current Inpatient Medications Acetaminophen (Acetaminophen 325 Mg Tab) 650 mg PO Q4H PRN PRN Reason: Headache or Minor Fever Stop: 07/27/22 17:44 Al Hydrox/Mg Hydrox/Simethicone (Aluminum/Magnesium Susp 30 Ml Udc) 30 ml PO Q4H PRN PRN Reason: GI Upset Stop: 07/27/22 17:44 Bismuth Subsalicylate (Bismuth Subsalicylate Liqd 236 Ml) 15 ml PO PRN PRN PRN Reason: Loose Stool Stop: 07/27/22 17:44 Duloxetine HCl (Duloxetine Hcl 30 Mg Cap) 30 mg PO QAM BRIJESH Stop: 07/30/22 11:59 Magnesium Hydroxide (Magnesium Hydroxide Susp 30 Ml Udc) 30 ml PO DAILY PRN PRN Reason: Constipation Stop: 07/27/22 17:44 Melatonin (Melatonin 3 Mg Tab) 3 mg PO HS PRN PRN Reason: Sleep Stop: 07/28/22 12:30 Mirtazapine (Mirtazapine Tab 15 Mg Tab) 7.5 mg PO HS BRIJESH Stop: 07/29/22 21:59 Last Admin: 06/29/22 21:40 Dose: 7.5 mg Sodium Chloride (Sodium Chloride 0.65% Na Soln 45 Ml ([place])) 1 - 2 sprays NA PRN PRN PRN Reason: Nasal Dryness/Congestion Stop: 07/27/22 17:44 Mental Health & Subst Abuse Tx Psychiatrist Name of Psychiatrist: Dr. Felix Psychiatrist's Date Of Appointment With Psychiatric Provider: 07/05/22 Time of Appointment with Psychiatrist: 4:00 PM Psychiatric Appointment Comment: Telehealth Therapist Name of Therapist: Evelyn Rossi [facility] x [phone] Date of Therapist Appointment: 07/08/22 Time of Therapist Appointment: 2:30 PM Therapy Appointment Comment: Telehealth Administration Assistant Name of Administration Assistant: [employer] [facility] Phone Number for Administration Assistant: [phone] Case Management Appointment Comment: Please check [employer] email for Zoom link. Post Discharge Appointments Primary Care Physician Name Of Family Doctor/PCP: [facility] Primary Care Provider Appointment Comment: Please follow up if primary care is needed. Contact Information Discharge Discharge Address: [facility] [address], [address], [facility] (2) Intentional overdose Encounter type: initial encounter Qualified Code(s): T50.902A - Poisoning by unspecified drugs, medicaments and biological substances, intentional self-harm, initial encounter
[2022-06-30] MEDS: DULoxetine HCL 30 MG CAP PO SCH (12:13)
[2022-06-30] MEDS: MIRTAZAPINE TAB 15 MG TAB PO SCH (21:17)
[2022-07-01] MEDS: DULoxetine HCL 30 MG CAP PO SCH (08:52)
[2022-07-01 15:36] LABS: Amphetamine Urine, Confirm NEGATIVE ng/mL (<250); MDA negative; MDEA negative; MDMA (Ecstasy) Urine, Confirm negative; Methamphetamine, Ur Confirm 2380 ng/mL (<250)
--- NOTE | 2022-07-01 20:36 | Psychiatric Progress Note ---
Date of Service July 01, 2022 Impression / Recommendations Impression Juanito is a 21 year old man and [employer] student with a history of depression and anxiety who was admitted for suicide attempt via polypharmacy overdose. Diagnostically consistent with persistent depressive disorder vs MDD, generalized anxiety disorder and alcohol use disorder with possible substance- induced mood component. He is deemed in need of psychiatric hospitalization for diagnostic clarification, safety and stabilization, medication management and development of further coping skills. 07/01/2022: Mood steadily improving, tolerating initiation of duloxetine, continues to find mirtazapine helpful. Ongoing motivational interviewing regarding alcohol use. (1) Persistent depressive disorder with anxious distress, currently severe: (2) Intentional overdose: (3) ARSH (generalized anxiety disorder): (4) Alcohol use disorder, moderate, dependence: Plan 07/01/2022: Continue current medications and tx plan. 06/30/2022: Start duloxetine 30mg daily. Continue mirtazapine 7.5mg HS. 06/29/2022: Start mirtazapine 7.5mg HS 06/28/2022: The patient was admitted to the [facility] ([facility]) on q15 min checks (behavioral with suicide precautions) for safety. The patient will participate in group, recreational, and milieu therapies and will be offered additional individual and family sessions as clinically appropriate. -Holding psychotropic medications for now in setting of overdose -Melatonin 3mg HS prn for insomnia -AWSS, not currently scoring and likely will not given clonazepam ingestion as part of suicide attempt Inventory Assets Strengths: supportive relationships, willing to get treatment Needs: safety and stabilization, medication adjustment, additional coping skills, increased outpatient services Suicide Risk Level Suicide Risk Level: Moderate (q15 min suicide checks) (severe depression s/p suicide attempt prior to admission but currently mood improving, denies SI and feels safe in the hospital, able to safety contract and agrees to let nursing/staff know should they develop plan, intent or feel unable to remain safe. 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 Chief Complaint "I'm pretty good". Review of Systems Sleep Information Total Hours of Sleep: 7.0 Meal Information Percent Meal Consumed - Breakfast: 100 Percent Meal Consumed - Lunch: 100 Percent Meal Consumed - Dinner: 100 Subjective Subjective Patient was seen & assessed and interval progress reviewed with treatment team nursing and social work. Attending groups. No side effects so far from duloxetine. Sleeping well with mirtazapine and significant reduction in morning levels of anxiety. Denies SI. Wanting to get back to class soon. Physical Exam Psychiatric Orientation: alert and oriented x 3 Apperance: appropriately dressed and appropriately groomed Eye Contact: good eye contact Motor Behavior: no abnormal motor movements Speech: normal rate/rhythm/volume of speech Affect: euthymic affect Mood: + anxious mood; no depressed mood Thought Process: goal directed thought process Thought Content: reality based without delusions Suicidal Thoughts: denies suicidal thoughts, denies suicidal plan and denies chin icidal intent Homicidal Thoughts: denies homicidal thoughts Hallucinations: no auditory hallucinations and no visual hallucinations Cognition: recent memory grossly intact, remote memory grossly intact, attention grossly intact and language grossly intact Estimated Intelligence: consistent with education level Insight: + fair insight Judgment: + fair judgement Vital Signs (Past 24 Hours) Last Vital Signs Temp 36.5 C 07/01/22 20:00 Pulse 88 07/01/22 06:39 Resp 18 07/01/22 06:38 BP 126/83 07/01/22 06:39 Pulse Ox 96 06/29/22 18:18 O2 Del Method Room Air 06/29/22 18:18 Results & Data ([facility]) Laboratory Results Laboratory Results - last 24 hr 06/27/22 10:35 U Amphetamines Confirm NEGATIVE U Methamphetamin Confrm 2380 H Urine MDEA negative MDMA negative Urine MDMA negative Drug Screen Comment SEE NOTE Current Inpatient Medications Current Inpatient Medications: Current Inpatient Medications Acetaminophen (Acetaminophen 325 Mg Tab) 650 mg PO Q4H PRN PRN Reason: Headache or Minor Fever Stop: 07/27/22 17:44 Al Hydrox/Mg Hydrox/Simethicone (Aluminum/Magnesium Susp 30 Ml Udc) 30 ml PO Q4H PRN PRN Reason: GI Upset Stop: 07/27/22 17:44 Bismuth Subsalicylate (Bismuth Subsalicylate Liqd 236 Ml) 15 ml PO PRN PRN PRN Reason: Loose Stool Stop: 07/27/22 17:44 Duloxetine HCl (Duloxetine Hcl 30 Mg Cap) 30 mg PO QAM BRIJESH Stop: 07/30/22 11:59 Last Admin: 07/01/22 08:52 Dose: 30 mg Magnesium Hydroxide (Magnesium Hydroxide Susp 30 Ml Udc) 30 ml PO DAILY PRN PRN Reason: Constipation Stop: 07/27/22 17:44 Melatonin (Melatonin 3 Mg Tab) 3 mg PO HS PRN PRN Reason: Sleep Stop: 07/28/22 12:30 Mirtazapine (Mirtazapine Tab 15 Mg Tab) 7.5 mg PO HS BRIJESH Stop: 07/29/22 21:59 Last Admin: 06/30/22 21:17 Dose: 7.5 mg Sodium Chloride (Sodium Chloride 0.65% Na Soln 45 Ml ([place])) 1 - 2 sprays NA PRN PRN PRN Reason: Nasal Dryness/Congestion Stop: 07/27/22 17:44 Mental Health & Subst Abuse Tx Psychiatrist Name of Psychiatrist: Dr. Felix Psychiatrist's Date Of Appointment With Psychiatric Provider: 07/05/22 Time of Appointment with Psychiatrist: 4:00 PM Psychiatric Appointment Comment: Telehealth Therapist Name of Therapist: Evelyn Rossi [facility] x [phone] Date of Therapist Appointment: 07/08/22 Time of Therapist Appointment: 2:30 PM Therapy Appointment Comment: Telehealth Lumber Marker Name of Lumber Marker: [facility] [employer] Phone Number for Lumber Marker: [phone] Date of Appointment with Lumber Marker: 07/05/22 Time of Appointment with Lumber Marker: 10:00 AM Case Management Appointment Comment: Please check [employer] email for Zoom link. Post Discharge Appointments Primary Care Physician Name Of Family Doctor/PCP: [facility] Primary Care Provider Appointment Comment: Please follow up if primary care is needed. Contact Information Discharge Discharge Address: [address], [address], [facility] (2) Intentional overdose Encounter type: initial encounter Qualified Code(s): T50.902A - Poisoning by unspecified drugs, medicaments and biological substances, intentional self-harm, initial encounter
[2022-07-01] MEDS: MIRTAZAPINE TAB 15 MG TAB PO SCH (21:15)
[2022-07-02] MEDS: DULoxetine HCL 30 MG CAP PO SCH (08:04)
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
[2022-07-02] MEDS ORDERED: DESTROY THIS MEDICATION ONE (09:32)
== END 2022-07-02 12:13 | disposition home or self-care (01) | DRG 881 ==
LOC: ED 03:51 → 3S 16:57 → MERGE 16:57 → 3S 17:07

== ENCOUNTER 2023-05-06 01:32 | Observation (INO) ==
[2023-05-06] MEDS ORDERED: SODIUM CHLORIDE 0.9% 1,000 ML IV SCH (01:45)
[2023-05-06 02:22] LABS: Basophils # (auto) 0.04 K/uL (0.00-0.20); Basophils % (auto) 0.3 %; Eosinophils # (auto) 0.03 K/uL (0.00-0.50); Eosinophils % (auto) 0.2 %; Hematocrit (blood only) 48.9 % (42.0-52.0); Hemoglobin 15.9 g/dl (14.0-18.0); Immature Granulocytes # (auto) 0.05 K/uL (0.01-0.20); Immature Granulocytes % (auto) 0.4 %; Lymphocytes # (auto) 1.73 K/uL (1.20-3.40); Lymphocytes % (auto) 12.4 %; Mean Corpuscular Hemoglobin 30.5 pg (25.0-34.0); Mean Corpuscular Hgb Conc 32.5 g/dL (32.0-36.0); Mean Corpuscular Volume 93.9 fL (80.0-100.0); Mean Platelet Volume 11.3 fL (9.4-12.4); Monocytes # (auto) 0.68 K/uL (0.11-0.59); Monocytes % (auto) 4.9 %; Neutrophils # (auto) 11.45 K/uL (1.40-6.50); Neutrophils % (auto) 81.8 %; Platelet Count 247 K/uL (130-400); RDW Coefficient of Variation 12.5 % (11.5-14.5); RDW Standard Deviation 43.2 fL (36.4-46.3); Red Blood Count 5.21 M/uL (4.70-6.10); White Blood Count 13.98 K/ul (4.8-10.8)
[2023-05-06 03:12] LABS: Troponin I High Sensitivity 2.4 pg/ml (0-20)
[2023-05-06 03:14] LABS: Albumin Level 4.9 gm/dl (3.4-5.0); Bilirubin,Total 1.7 mg/dl (0.2-1.0); Calcium 9.9 mg/dl (8.6-10.3); Magnesium 2.1 mg/dl (1.7-2.4); Potassium 4.1 mmol/L (3.5-5.1)
[2023-05-06 03:20] LABS: Albumin Globulin Ratio 1.6 (0.9-2); BUN Creatinine Ratio 10.8 (10-20); Est GFR (African American) 108.7 ml/min; Est GFR (Non-African American) 93.8 ml/min; Total Protein 7.9 gm/dl (6.0-8.3)
[2023-05-06 03:24] LABS: Acetaminophen < 3 ug/ml (10-30); Salicylate < 3.0 mg/dl (3.0-30)
[2023-05-06 03:54] LABS: INR 1.1 (0.9-1.1); Prothrombin Time 11.5 Seconds (9.0-12.0)
[2023-05-06] MEDS ORDERED: SODIUM CHLORIDE 0.9% 1,000 ML IV ONE (04:21)
--- NOTE | 2023-05-06 04:56 | Emergency Department Note ---
Impression & Plan Intentional overdose, Suicide attempt by multiple drug overdose, Rhabdomyolysis, Sinus tachycardia, Alcohol intoxication ED Provider Note NAME: DAFNE VELASQUEZ AGE: 22 SEX: Male INFORMANT: Patient, police, EMS ED PROVIDER(S): Tomas Singletary MD CHIEF COMPLAINT: Overdose PLAN: Disposition: Admitted Outpatient prescription management: none Referral: None MEDICAL DECISION MAKING: Patient presented emerged department by EMS because of an intentional overdose. Patient was placed on property assessment monitor. IV established. He was hydrated. Patient was somewhat altered but was following commands and cooperative. He was tachycardic on monitoring. Twelve-lead ECG was performed. He had sinus tachycardia without interval prolongation. Laboratory testing revealed a leukocytosis of 13,000. Blood alcohol level was mildly elevated. Patient had mild rhabdomyolysis with a CK of 299. Remainder of toxicology screen and chemistries were unremarkable. Patient was given additional IV hydration. Poison control was consulted and recommended monitoring and serial ECG at 3 hours. This was done. No interval prolongation had occurred. Patient was still mildly tachycardic. Patient was reassessed. Mental status did improve. Tachycardia still present although improved. Discussed with ED psychiatric nurse case manager in light of the medication ingestion and abnormal labs the patient will need medical observation urine clearance prior to psychiatric consultation. Consultation was made with Dr. Edson Le of the [facility] service. Patient was evaluated in the ER for further management. Care/management discussed with: ED psychiatric nurse case manager Level of care consideration(s): After review of the information above and other included data, I feel the patient requires escalation of care to admission Triage Nursing notes: reviewed and agree them. Vital Signs: reviewed and remarkable for tachycardia Additional History obtained from: EMS and police. They did have the patient's empty pill bottles. They also noted he did consume alcohol. Chronic Medical/Social Conditions affecting care: none Prior/ Outside/ External records reviewed: none Differential Diagnosis: Overdose, toxicologic, infection, hypoglycemia, electrolyte abnormalities, cardiac sources, intracerebral event, neurologic, trauma, as well as other pathologies. Diagnostics, independently interpreted by me: ECG: COVID ECG #1 reveals sinus tachycardia 123 bpm. QRS 74 ms. QTc interval 438 ms. No ectopy. Twelve-lead ECG #2 reveals sinus tachycardia at 113 bpm. QRS 74 ms QTc [address] elevation or depression. No PVCs or PACs. Cardiac Monitoring: Cardiac monitoring ordered by me: The patient was placed on continuous cardiac monitoring and observed. It revealed a sinus tachycardic rhythm at 112 beats per minute without ectopy or evidence of dysrhythmia. Medical decision rules: none Imaging studies: Deferred HPI: 22 year old Male arrives for evaluation of an intentional overdose. Patient reportedly had thoughts of self-harm and took approximately 6 Adderall, 15 Lexapro, 7 Klonopin, unknown number of Benadryl and drink beer. Roommates told police that he was making statements about self-harm and had a really bad week. He seemed depressed. Patient was left alone and stated he was going to meet friends. When they came back about 2 hours later he had come out of his room and his face was covered in vomitus. EMS was summoned. Patient denies any pain. He is vague about his overdose details. Pt denies LOC, tongue biting, incontinence, headache, visual changes, neck pain, chest pain, breathing difficulties, abdominal pain, back pain, extremity pain, numbness, weakness, open wounds, active bleeding, or other complaints. PAST MEDICAL HISTORY: See Below, anxiety PAST SURGICAL HISTORY: See Below, SOCIAL HISTORY: See Below, [facility] MEDICATIONS: See Below ALLERGIES: See Below VITALS: See Below PHYSICAL EXAMINATION: GENERAL: Awake, alert, mildly intoxicated-appearing, in no distress HENT: Normocephalic, atraumatic. Oropharynx unremarkable. Vomitus on face. EYES: Normal conjunctiva. Sclera non-icteric. PERRLA. EOMI. Mild lateral nystagmus. NECK: Inspection normal. Non-tender. Supple. No nuchal rigidity. FROM. No masses. RESPIRATORY: Clear to auscultation. No wheezes. No rales. Normal respiratory effort. CARDIAC: Tachycardic rate. Normal rhythm. No murmurs. No rubs. Extremities warm and well perfused. Pulses equal. No JVD. GI: Soft, non-distended. No tenderness to palpation. No rebound or guarding. No masses. RECTAL: Deferred. MUSCULOSKELETAL: Atraumatic. Chest examination reveals no tenderness. The back is symmetrical on inspection without obvious abnormality. There is no CVA tenderness to palpation. No joint edema. LOWER EXTREMITIES: Calves are equal size bilaterally and non-tender. No edema. No discoloration. NEURO: Normal sensorium. No sensory or motor deficits noted. No clonus. SKIN: No rash or jaundice noted. PROCEDURES: none CRITICAL CARE: I have personally spent 40 minutes of critical care time in the direct management of this patient. This includes bedside care, interpretation of diagnostic studies, and testing, discussion with consultants, patient, and other required patient management activities. These minutes are in excess of all separately billable procedures. OBSERVATION NOTE: none Past Med/Surg History Medical History (Updated 05/06/23 @ 04:56 by Tomas Singletary MD) Intentional overdose Social History Smoking Status: Never smoker Tobacco Type: Cigarettes and E-cigarettes / Vaping Preferred Language: Kyrgyz Communication Ability: Effective Retail Account Executive Required: No Beliefs That Will Affect Care: None Feels Safe at Home: Yes Gender Identity: Male Assistive Devices: Glasses Allergies Allergies Allergy/AdvReac Type Severity Reaction Status Date / Time sulfamethoxazole Allergy Intermediate Rash Verified 06/28/22 12:06 [From Bactrim] trimethoprim [From Bactrim] Allergy Intermediate Rash Verified 06/28/22 12:06 Results & Data (ED) Vital Signs Vital Signs - 24 hr 05/06/23 01:43 05/06/23 02:00 05/06/23 02:01 Temperature 37.0 C Temperature Source Oral Pulse Rate 127 H 135 H 120 H Pulse Rate [Apical] Pulse Rhythm Irregular Pulse Rhythm [Apical] Pulse Strength [Apical] Respiratory Rate 33 H 30 H Respiratory Effort / Characteristics Non-Labored Respiratory Depth Normal Respiratory Pattern Blood Pressure 118/89 118/89 Blood Pressure [Right Arm] Blood Pressure Mean 93 98 Blood Pressure Mean [Right Arm] Blood Pressure Position [Right Arm] Pulse Oximetry 100 100 Oxygen Delivery Method Room Air Room Air Sepsis Recent Fever Within 48 Hours No Sepsis New/Unexplained Change in Mental Status No Sepsis Action Taken by Nursing No Action Required 05/06/23 03:00 05/06/23 04:00 05/06/23 04:30 Temperature Temperature Source Pulse Rate Pulse Rate [Apical] 117 H 116 H 106 H Pulse Rhythm Pulse Rhythm [Apical] Regular Regular Regular Pulse Strength [Apical] Normal Normal Normal Respiratory Rate 17 17 16 Respiratory Effort / Characteristics Non-Labored Spontaneous Non-Labored Spontaneous Non-Labored Spontaneous Respiratory Depth Normal Normal Normal Respiratory Pattern Regular Regular Regular Blood Pressure Blood Pressure [Right Arm] 124/74 140/84 150/75 H Blood Pressure Mean Blood Pressure Mean [Right Arm] 90 102 100 Blood Pressure Position [Right Arm] Lying Lying Sitting Pulse Oximetry 100 99 100 Oxygen Delivery Method Room Air Room Air Room Air Sepsis Recent Fever Within 48 Hours Sepsis New/Unexplained Change in Mental Status Sepsis Action Taken by Nursing 05/06/23 05:05 05/06/23 05:30 05/06/23 05:37 Temperature Temperature Source Pulse Rate 106 H Pulse Rate [Apical] 99 H 107 H Pulse Rhythm Pulse Rhythm [Apical] Regular Regular Pulse Strength [Apical] Normal Normal Respiratory Rate 17 17 Respiratory Effort / Characteristics Non-Labored Spontaneous Non-Labored Spontaneous Respiratory Depth Normal Normal Respiratory Pattern Regular Regular Blood Pressure Blood Pressure [Right Arm] 153/92 H 121/87 Blood Pressure Mean Blood Pressure Mean [Right Arm] 112 98 Blood Pressure Position [Right Arm] Lying Sitting Pulse Oximetry 100 99 Oxygen Delivery Method Room Air Room Air Sepsis Recent Fever Within 48 Hours Sepsis New/Unexplained Change in Mental Status Sepsis Action Taken by Nursing Laboratory Data 05/06/23 01:55 05/06/23 01:55 Lab Results 05/06/23 05/06/23 05/06/23 Range/Units 01:55 02:00 03:12 WBC 13.98 H (4.8-10.8) K/ul RBC 5.21 (4.70-6.10) M/uL Hgb 15.9 (14.0-18.0) g/dl Hct 48.9 (42.0-52.0) % MCV 93.9 (80.0-100.0) fL MCH 30.5 (25.0-34.0) pg MCHC 32.5 (32.0-36.0) g/dL RDW Std Deviation 43.2 (36.4-46.3) fL RDW Coeff of [place] 12.5 (11.5-14.5) % Plt Count 247 (130-400) K/uL MPV 11.3 (9.4-12.4) fL Immature Gran % (Auto) 0.4 % Neut % (Auto) 81.8 % Lymph % (Auto) 12.4 % [place] % (Auto) 4.9 % Eos % (Auto) 0.2 % Baso % (Auto) 0.3 % Neut # (Auto) 11.45 H (1.40-6.50) K/uL Lymph # (Auto) 1.73 (1.20-3.40) K/uL [place] # (Auto) 0.68 H (0.11-0.59) K/uL Eos # (Auto) 0.03 (0.00-0.50) K/uL Baso # (Auto) 0.04 (0.00-0.20) K/uL Immature Gran # (Auto) 0.05 (0.01-0.20) K/uL PT Cancelled 11.5 INR Cancelled 1.1 Sodium 138 (136-145) mmol/L Potassium 4.1 (3.5-5.1) mmol/L Chloride 102 (98-107) mmol/L Carbon Dioxide 21 (21-32) mmol/L Anion Gap 15 H (3-11) BUN 12 (6-23) mg/dl Creatinine 1.11 (0.6-1.4) mg/dl Est Cr Clr Drug Dosing 101.0 ml/min Est GFR ( Amer) 108.7 ml/min Est GFR (Non-Af Amer) 93.8 ml/min BUN/Creatinine Ratio 10.8 (10-20) Glucose 86 (70-99(Fasting)) mg/dl Calcium 9.9 (8.6-10.3) mg/dl Magnesium 2.1 (1.7-2.4) mg/dl Total Bilirubin 1.7 H (0.2-1.0) mg/dl AST 21 (13-39) U/L ALT 19 (7-52) U/L Alkaline Phosphatase 66 (34-104) U/L Total Creatine Kinase 299 H (30-223) U/L Troponin I High Sens 2.4 (0-20) pg/ml Total Protein 7.9 (6.0-8.3) gm/dl Albumin 4.9 (3.4-5.0) gm/dl Globulin 3.0 (2.5-4.0) gm/dl Albumin/Globulin Ratio 1.6 (0.9-2) Urine Color Urine Appearance (Clear) Urine pH (4.5-7.5) Ur Specific [place] (1.000-1.030) Urine Protein (Negative) Urine Glucose (UA) (Negative) Urine Ketones (Negative) Urine Blood (Negative) Urine Nitrite (Negative) Urine Bilirubin (Negative) Urine Urobilinogen (Negative) Ur Leukocyte Esterase (Negative) Salicylates < 3.0 L (3.0-30) mg/dl Urine Opiates Screen (Neg) Ur Methadone, Qual (Neg) Acetaminophen < 3 L (10-30) ug/ml Urine Barbiturates (Neg) Ur Phencyclidine (PCP) (Neg) U Amphetamin/Meth Scrn (Neg) MDMA (Ecstasy) Screen (Neg) U Benzodiazepines Scrn (Neg) Ur Cocaine Metabolite (Neg) U Marijuana (THC) Screen (Neg) Ethyl Alcohol mg/dL 77.8 H (<10.0) mg/dl SARS-CoV-2, RNA, NAAT NEGATIVE (NEGATIVE) 05/06/23 Range/Units 05:00 WBC (4.8-10.8) K/ul RBC (4.70-6.10) M/uL Hgb (14.0-18.0) g/dl Hct (42.0-52.0) % MCV (80.0-100.0) fL MCH (25.0-34.0) pg MCHC (32.0-36.0) g/dL RDW Std Deviation (36.4-46.3) fL RDW Coeff of Chelita (11.5-14.5) % Plt Count (130-400) K/uL MPV (9.4-12.4) fL Immature Gran % (Auto) % Neut % (Auto) % Lymph % (Auto) % [place] % (Auto) % Eos % (Auto) % Baso % (Auto) % Neut # (Auto) (1.40-6.50) K/uL Lymph # (Auto) (1.20-3.40) K/uL [place] # (Auto) (0.11-0.59) K/uL Eos # (Auto) (0.00-0.50) K/uL Baso # (Auto) (0.00-0.20) K/uL Immature Gran # (Auto) (0.01-0.20) K/uL PT INR Sodium (136-145) mmol/L Potassium (3.5-5.1) mmol/L Chloride (98-107) mmol/L Carbon Dioxide (21-32) mmol/L Anion Gap (3-11) BUN (6-23) mg/dl Creatinine (0.6-1.4) mg/dl Est Cr Clr Drug Dosing ml/min Est GFR ( Amer) ml/min Est GFR (Non-Af Amer) ml/min BUN/Creatinine Ratio (10-20) Glucose (70-99(Fasting)) mg/dl Calcium (8.6-10.3) mg/dl Magnesium (1.7-2.4) mg/dl Total Bilirubin (0.2-1.0) mg/dl AST (13-39) U/L ALT (7-52) U/L Alkaline Phosphatase (34-104) U/L Total Creatine Kinase (30-223) U/L Troponin I High Sens (0-20) pg/ml Total Protein (6.0-8.3) gm/dl Albumin (3.4-5.0) gm/dl Globulin (2.5-4.0) gm/dl Albumin/Globulin Ratio (0.9-2) Urine Color Yellow Urine Appearance Clear (Clear) Urine pH 5.5 (4.5-7.5) Ur Specific [place] 1.009 (1.000-1.030) Urine Protein Negative (Negative) Urine Glucose (UA) Negative (Negative) Urine Ketones Negative (Negative) Urine Blood Negative (Negative) Urine Nitrite Negative (Negative) Urine Bilirubin Negative (Negative) Urine Urobilinogen Negative (Negative) Ur Leukocyte Esterase Negative (Negative) Salicylates (3.0-30) mg/dl Urine Opiates Screen Neg (Neg) Ur Methadone, Qual Neg (Neg) Acetaminophen (10-30) ug/ml Urine Barbiturates Neg (Neg) Ur Phencyclidine (PCP) Neg (Neg) U Amphetamin/Meth Scrn Pos H (Neg) MDMA (Ecstasy) Screen Pos H (Neg) U Benzodiazepines Scrn Neg (Neg) Ur Cocaine Metabolite Neg (Neg) U Marijuana (THC) Screen Neg (Neg) Ethyl Alcohol mg/dL (<10.0) mg/dl SARS-CoV-2, RNA, NAAT (NEGATIVE) Administered Medications Discontinued Medications Sodium Chloride (Nss) 1,000 mls @ 999 mls/hr IV .Q1H1M BRIJESH Stop: 05/06/23 02:45 Last Infusion: 05/06/23 03:26 Dose: Infused Documented By: Admin: 05/06/23 02:14 Dose: 999 mls/hr Documented By: KP Sodium Chloride (Nss) 1,000 mls @ 999 mls/hr IV .Q1H1M ONE Stop: 05/06/23 05:21 Last Infusion: 05/06/23 05:23 Dose: Infused Documented By: Admin: 05/06/23 04:25 Dose: 999 mls/hr Documented By: SHERRY Discharge Plan Visit Data Chief Complaint: Overdose (Intentional) ED Provider: Tomas Singletary Discharge Problem: Intentional overdose, Suicide attempt by multiple drug overdose, Rhabdomyolysis, Sinus tachycardia, Alcohol intoxication Forms Stand Alone Forms: Counts Include [facility], Suicide Prevention Resources Referrals Referrals: PCP,NO [Primary Care Provider] -
[2023-05-06 05:26] LABS: Appearance Urine Clear (Clear); Bilirubin Urine Negative (Negative); Blood Urine Negative (Negative); Color Urine Yellow; Glucose Urine UA Negative (Negative); Ketones Urine Negative (Negative); Leukocyte Esterase Urine Negative (Negative); Nitrite Urine Negative (Negative); Protein Urine Negative (Negative); Specific Gravity Urine 1.009 (1.000-1.030); Urobilinogen Urine Negative (Negative); pH Urine 5.5 (4.5-7.5)
--- NOTE | 2023-05-06 05:38 | History & Physical Report ---
Date of Service May 06, 2023 Assessment & Plan (1) Intentional overdose: Plan: Pt is a 22 yo male with PMH of anxiety and depression presenting to the ER via EMS d/t intentional overdose. Intentional drug overdose - pt hemodynamically stable - EKG showing sinus tach, QTc 436 - lab work significant for leukocytosis of 13, Hgb 15.9, electrolytes WNL, Cr 1.11, trop 2.4 - neg for salicylates and acetaminophen; urine drug screen pending - ETOH 77.8; low risk for withdrawal- no AWSS necessary - elevated CK most likely related to dehydration; do not suspect rhabdo - 1:1 ordered, safe tray, suicide checks - psych consulted Depression/anxiety - per pt, he was being treated as an outpatient with lexapro and adderall - will defer further management to psychiatry Diet: regular, safe tray VTE ppx: deferred, low risk Code: full Dispo: med/tele (2) Depression: (3) ARSH (generalized anxiety disorder): (4) Alcohol intoxication: History of Present Illness Chief Complaint: intentional OD Primary Care Provider: NO PCP Pt is a 22 yo male with PMH of anxiety and depression presenting to the ER via EMS d/t intentional overdose. Pt tells me that his ex-girlfriend and the rest of his friends were planning a trip for spring. On Tuesday, he was told that he would be excluded from this trip. He was making statements about harming himself to his friends, ex- girlfriend, and parents at that time which prompted his ex-girlfriend to call the police to check on him. This resulted in him being brought to the ER for evaluation. Last night, pt states he drank "a few drinks" and didn't remember anything after that. He does tell me that he took lexapro, adderall, and benadryl with the intent to end his life. He had a previous suicide attempt last year. He states "I guess I'm not very good at killing myself." He denies current thoughts of suicide/self harm. He does note to me that he is not interested in inpatient behavioral health at [place] because he felt that it did not benefit him last time. He also notes this odd sensation of seeing people in his room that aren't there. He describes as when he starts to fall asleep and might think that someone is in the room with him and he may respond to them. He denies overtly hearing voices. He smokes cannabis occasionally. He denies other drug use. He drinks alcohol 2-3 days per week with his last drink being last night. He has never withdrawn from alcohol. He has dealt with anxiety and depression for a long time. He states the only medications he was taking daily were lexapro and adderall. He has no other chronic medical conditions. In the ER, pt was hypertensive and tachycardic. He received 2L of NS. Allergies Allergy/AdvReac Type Severity Reaction Status Date / Time sulfamethoxazole Allergy Intermediate Rash Verified 06/28/22 12:06 [From Bactrim] trimethoprim [From Bactrim] Allergy Intermediate Rash Verified 06/28/22 12:06 Home Medications Medication Instructions Recorded Confirmed Type clonazepam 0.5 mg disintegrating 0.5 mg PO DAILY PRN Anxiety 05/06/23 05/06/23 History tablet dextroamphetamine-amphetamine ER 25 mg PO DAILY 05/06/23 05/06/23 History 25 mg 24hr capsule,extend release (Adderall XR) escitalopram oxalate 20 mg tablet 20 mg PO DAILY 05/06/23 05/06/23 History (Lexapro) Past Med/Surg History Medical History (Updated 05/06/23 @ 04:56 by Tomas Singletary MD) Intentional overdose Social History Smoking Status: Never smoker Tobacco Type: Cigarettes and E-cigarettes / Vaping Second Hand Exposure: No; Do You Dip or Chew Tobacco: No; Hx Alcohol Use: Yes Alcohol type: beer and hard liquor Hx Substance Use: No Preferred Language: Monegasque Communication Ability: Effective Bleacher Sulfite Pulp Required: No Beliefs That Will Affect Care: None Current Living Situation: Other Current Living Situation Comment: 6 male roomates Feels Safe at Home: Yes Gender Identity: Male Assistive Devices: None Review of Systems Review of Systems: As per HPI Physical Exam Physical Exam: Constitutional: well appearing, no acute distress HEENT: normocephalic, no conjunctival injection CV: regular rhythm, tachycardic, no murmur, no LE edema Respiratory: CTA bilaterally. No rhonchi, wheezes, or crackles. No increased work of breathing GI: soft, nondistended, nontender, + bowel sounds MSK: no gross deformities noted Skin: warm, dry, no rashes Neuro: alert, oriented, no FND noted Psych: mood and affect congruent. He does not appear to being responding to internal stimuli Results & Data Results & Data Vital Signs (Past 12 Hours) Vital Signs Temp Pulse Pulse Resp BP BP Pulse Ox 05/06/23 05:05 99 H 17 153/92 H 100 05/06/23 04:30 106 H 16 150/75 H 100 05/06/23 04:00 116 H 17 140/84 99 05/06/23 03:00 117 H 17 124/74 100 05/06/23 02:01 37.0 C 120 H 30 H 118/89 100 05/06/23 02:00 135 H 33 H 118/89 100 05/06/23 01:43 127 H O2 Del Method 05/06/23 05:05 Room Air 05/06/23 04:30 Room Air 05/06/23 04:00 Room Air 05/06/23 03:00 Room Air 05/06/23 02:01 Room Air 05/06/23 02:00 Room Air 05/06/23 01:43 Supervising Physician Co-Signing Physician Notes Attending addendum: I have physically seen this patient, have supervised the medical residents activities, and agree with the H&P unless as otherwise noted. Assessment and Plan: Intentional drug overdose/depression/anxiety- Home medications include clonazepam, Adderall XR and escitalopram, all of which will be held He reportedly took 6 Adderall, 15 Lexapro and 7 Klonopin, along with unknown amount of Benadryl and was drinking beer Patient was noted to be depressed by friends. One-to-one observation Alcohol level 77.8 COVID-19 testing negative Urine drug screen pending, negative for salicylates and acetaminophen Patient was noted to be tachycardic in the emergency department, and therefore was admitted to a monitored bed IV fluids as noted Psychiatry consult ordered Resident Activity Tracking Resident Involvement: Resident Care Provided Care Provided: Adult [facility] (2) Depression Active/Remission status: currently active Depression Type: major depressive disorder Major depression episode severity: unspecified Major depression recurrence: recurrent Qualified Code(s): F33.9 - Major depressive disorder, recurrent, unspecified
[2023-05-06] MEDS ORDERED: ACETAMINOPHEN 325 MG TAB PO PRN (06:00)
[2023-05-06] MEDS ORDERED: ONDANSETRON INJ 2 MG/ML 2 ML VIAL IV PRN (06:00)
[2023-05-06] MEDS ORDERED: MELATONIN 3 MG TAB PO PRN (06:00)
[2023-05-06] MEDS ORDERED: POLYETHYLENE (MIRALAX) 17 GM PACK PO PRN (06:00)
[2023-05-06 06:01] LABS: Amphetamines+Metham, Urine Pos (Neg); Barbiturates, Urine Neg (Neg); Benzodiazepine, Urine Neg (Neg); Cocaine, Urine Neg (Neg); MDMA (Ecstacy), Urine Pos (Neg); Marijuana, Urine Neg (Neg); Methadone, Urine Neg (Neg); Opiate, Urine Neg (Neg); Phencyclidine, Urine Neg (Neg)
--- NOTE | 2023-05-06 12:17 | Hospitalist Progress Note ---
Date of Service May 06, 2023 Assessment & Plan (1) Intentional overdose: Plan: Pt is a 22 yo male with PMH of anxiety and depression presenting to the ER via EMS d/t intentional overdose. Intentional drug overdose -EKG on admission showing sinus tachycardia, QTc 436 -Repeat EKG ordered -UDS positive for ecstasy. Ethyl alcohol level 78 on admission -Currently hemodynamically stable -1:1 observation, safe tray, suicide precautions -Psychiatry consulted on admission, awaiting recommendations Sinus tachycardia -Ongoing sinus tachycardia with HR 100s -Likely physiologic response in aftermath of Adderall/Lexapro/Benadryl overdose -Repeat EKG as above -Telemetry monitoring MDD/ARSH -Per pt, he was being treated as an outpatient with Lexapro and Adderall -Medications on hold for now -Awaiting psychiatry recommendations Leukocytosis -WBC 14 on admission -Likely stress demargination -Low suspicion for acute infection at present -Monitor CBC Hyperbilirubinemia -TB 1.7 on admission -No jaundice on exam, normal AST/ALT -Likely reactive -Monitor CMP Diet: regular, safe tray VTE ppx: ambulation, low-risk Code: full Dispo: Medical/surgical with telemetry (2) Depression: (3) ARSH (generalized anxiety disorder): (4) Alcohol intoxication: Admission and Anticipated Discharge Date Admission Date: May 06, 2023 Supervising Physician Co-Signing Physician Notes I also saw the patient confirmed kruger portions of the clinical history and physical examination. I agree the impression and plan as noted in the resident documentation above. At the time of our morning exam, the patient remains in the behavioral health emergency department unit. Both parents are at bedside after driving overnight from their home in [facility]. Patient is without complaints. The psychiatric nurse liaison has been in to see the patient; formal consultation was pending at that time. Exam 128/79, 85, 19, 37 C, 97% room air Alert and oriented. Calm. Heart regular rhythm, slightly tachycardic upon exam. No murmurs appreciated Lungs clear with nonlabored respirations Data Mild leukocytosis, white blood cell count 13.98. Hemoglobin 15.9 Serum chemistries are unremarkable. Urinalysis is normal. EtOH 77.8. Urine toxicology screen positive for MDMA, amphetamine/methamphetamine screen; confirmations pending Impression and plan Intentional overdose Mild sinus tachycardia Leukocytosis, suspect reactive Await formal psychiatric consultation Remains in behavioral health ED unit Medically stable Subjective Acute events overnight- none. Pt examined at bedside. Reports feeling well, no acute complaints. He does report hearing voices and seeing strange visions as he goes in and out of sleep. Denies suicidal intent or plan at present. Review of Systems Review of Systems: As per HPI Physical Exam Physical Exam: Constitutional: well appearing, no acute distress HEENT: normocephalic, no conjunctival injection CV: regular rhythm, tachycardic, no murmur, no LE edema Respiratory: CTA bilaterally. No rhonchi, wheezes, or crackles. No increased work of breathing GI: soft, nondistended, nontender MSK: no gross deformities noted Skin: warm, dry, no rashes Neuro: alert, oriented, no focal deficits noted Psych: mood and affect congruent, no SI/HI, no AVH, good insight Results & Data Results & Data Vital Signs (Past 12 Hours) Vital Signs Temp Pulse Pulse Resp BP BP Pulse Ox 05/06/23 11:30 113 H 22 96 05/06/23 11:00 95 H 20 145/82 H 96 05/06/23 10:02 102 H 14 108/84 95 05/06/23 07:25 96 H 14 135/82 99 05/06/23 07:05 106 H 05/06/23 06:00 104 H 16 135/77 99 05/06/23 05:37 106 H 05/06/23 05:30 107 H 17 121/87 99 05/06/23 05:05 99 H 17 153/92 H 100 05/06/23 04:30 106 H 16 150/75 H 100 05/06/23 04:00 116 H 17 140/84 99 05/06/23 03:00 117 H 17 124/74 100 05/06/23 02:01 37.0 C 120 H 30 H 118/89 100 05/06/23 02:00 135 H 33 H 118/89 100 05/06/23 01:43 127 H O2 Del Method 05/06/23 11:30 Room Air 05/06/23 11:00 Room Air 05/06/23 10:02 Room Air 05/06/23 07:25 Room Air 05/06/23 07:05 05/06/23 06:00 Room Air 05/06/23 05:37 05/06/23 05:30 Room Air 05/06/23 05:05 Room Air 05/06/23 04:30 Room Air 05/06/23 04:00 Room Air 05/06/23 03:00 Room Air 05/06/23 02:01 Room Air 05/06/23 02:00 Room Air 05/06/23 01:43 Resident Activity Tracking Resident Involvement: Resident Care Provided Care Provided: Adult Hospital Medicine (2) Depression Active/Remission status: currently active Depression Type: major depressive disorder Major depression episode severity: unspecified Major depression recurrence: recurrent Qualified Code(s): F33.9 - Major depressive disorder, recurrent, unspecified
--- NOTE | 2023-05-06 17:33 | Electrocardiogram Report ---
Test Reason : Blood Pressure : / mmHG Vent. Rate : 113 BPM Atrial Rate : 113 BPM P-R Int : 118 ms QRS Dur : 074 ms QT Int : 318 ms P-R-T Axes : 057 042 051 degrees QTc Int : 436 ms Sinus tachycardia T wave abnormality, consider lateral ischemia Abnormal ECG When compared with ECG of 06-MAY-2023 01:44, (unconfirmed) No significant change was found Confirmed by Alton Wilks ([id number]) on 05/06/2023 5:33:20 PM Referred By: REFERRED SELF Confirmed By:Juan Wilks
--- NOTE | 2023-05-06 17:34 | Electrocardiogram Report ---
Test Reason : Blood Pressure : / mmHG Vent. Rate : 123 BPM Atrial Rate : 123 BPM P-R Int : 118 ms QRS Dur : 074 ms QT Int : 306 ms P-R-T Axes : 067 050 011 degrees QTc Int : 438 ms Sinus tachycardia Nonspecific T wave abnormality Abnormal ECG No previous ECGs available Confirmed by Alton Wilks ([id number]) on 05/06/2023 5:34:33 PM Referred By: REFERRED SELF Confirmed By:Juan Wilks
--- NOTE | 2023-05-06 17:37 | Electrocardiogram Report ---
Test Reason : Blood Pressure : / mmHG Vent. Rate : 087 BPM Atrial Rate : 087 BPM P-R Int : 132 ms QRS Dur : 086 ms QT Int : 342 ms P-R-T Axes : 058 036 023 degrees QTc Int : 411 ms Normal sinus rhythm Nonspecific T wave abnormality Abnormal ECG When compared with ECG of 06-MAY-2023 04:26, (unconfirmed) No significant change was found Confirmed by Alton Wilks ([id number]) on 05/06/2023 5:36:45 PM Referred By: REFERRED SELF Confirmed By:Juan Wilks
--- NOTE | 2023-05-06 21:23 | Psychiatric Consultation ---
Date of Consultation May 06, 2023 Impression / Recommendations Impression 22 y/o M with depression, anxiety, and alcohol use disorder. He is clearly an unreliable historian (denying any previous overdose, for example) and is markedly minimizing the very clear reasons that others are concerned about his safety. At this time, he meets criteria for section 302 involuntary emergency psychiatric admission and will require psychiatric admission once medically clear. Overall I spent a total of 86 minutes on the floor for this consultation assessment including review of chart records, review of test results, direct evaluation of the patient [id number], counseling the patient, risk assessment, discussion with the psychiatric liaison nurse, and documentation in the electronic health record. (1) Persistent depressive disorder with anxious distress, currently severe: (2) ARSH (generalized anxiety disorder): (3) Alcohol use disorder, moderate, dependence: Plan There is a 302 petitioning statement on the chart and he meets criteria for a part 302 warrant. The patient should remain on safety precautions with 1-on-1 pending medical clearance. The patient is not psychiatrically cleared to leave the hospital without additional safety or aftercare planning; this patient should not be allowed to leave [facility] without notification to our service as a 302 warrant may be appropriate if he is not willing to sign himself in. There is no need to resume any psychiatric medication at this time given the recent overdose. If pt becomes combative, haloperidol 5 mg, lorazepam 2 mg, and diphenhydramine 50 mg can be given Q8H PRN, either orally (preferred) or IM (if oral medication can't be administered) Psych History Identifying Data DAFNE VELASQUEZ is a 22-year-old M with a history of depression, admitted on 05/06/2023 for overdose. Consult is by the hospitalist service for "intentional OD". Chief Complaint "I need to go home". History of Present Illness As part of a thorough review of the available medical records, I have read and and incorporated into my assessment the following notes by the ED physicians: 05/06/2023: "Patient presented emerged department by EMS because of an intentional overdose. Patient was placed on quality assurance monitor body. IV established. He was hydrated. Patient was somewhat altered but was following commands and cooperative. He was tachycardic on monitoring. Twelve-lead ECG was performed. He had sinus tachycardia without interval prolongation. Laboratory testing revealed a leukocytosis of 13,000. Blood alcohol level was mildly elevated. Patient had mild rhabdomyolysis with a CK of 299. Remainder of toxicology screen and chemistries were unremarkable. Patient was given additional IV hydration. Poison control was consulted and recommended monitoring and serial ECG at 3 hours. This was done. No interval prolongation had occurred. Patient was still mildly tachycardic. Patient was reassessed. Mental status did improve. Tachycardia still present although improved. Discussed with ED psychiatric manager case in light of the medication ingestion and abnormal labs the patient will need medical observation urine clearance prior to psychiatric consultation." 05/03/2023: "Patient is a 22-year-old gentleman history of anxiety and depression presenting here today brought by police for a mental health evaluation. 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 Reports that he has had ongoing depression issues for years. States he follows with mental health providers from [facility] where his primary residence is. Patient states that he meets with them weekly and met with him yesterday. States he has had some passive suicidal thoughts here and there but that is been an ongoing issue. Denies any active thoughts or plans to harm himself or end his life. Patient denies 1 harm of any else or loose Nations. States he does drink occasionally some alcohol in the weekend but denies any significant excess or any significant drug use. Patient states he does not feel that he is inpatient treatment. When asked about the petitioning statement that questions if he is been sending some text messages saying that he would not want to be alive he does report he had these passive thoughts but does not have any intent to act on them. Patient does acknowledge previous suicide attempt last year with hos pitalization and 3 S. but states things are not at that point currently. Does relay his has been difficult and that he did break up just before [place] with a girlfriend. Some support from home by his report." "Seen with a psychiatric manager case. 302 petition reviewed it was made by the ex-girlfriend's roommate from the documentation. Reports concerns regarding text messages she had received. Discussed the patient. Denies any active plan to harm himself or active furtherance. States he has chronic suicidal thoughts and passive thoughts often occur. Denies any HI or hallucinations. Denies significant substance use. States compliant his home medication and following with his outpatient mental health providers including meeting with them yesterday virtually. Basic labs were obtained here. UDS consistent with his ADHD medication. Seen with a psychiatric manager case. Patient declines voluntary inpatient treatment. On further review of the petitioning statement and available corroborating evidence, with the patient has ongoing passive suicidal thoughts there is been no acts of furtherance and the patient denies any intent to actually move forward or harm himself. Does have outpatient care and follow-up. States medication compliance. At this time I do not feel have grounds to involuntarily commit the patient and I do not feel he is an acute risk to harm himself. Case management assisted with safety planning. Does have outpatient resources. Patient contracted for safety with me and discussed with him return precautions." the following note by the hospitalist: "Pt is a 22 yo male with PMH of anxiety and depression presenting to the ER via EMS d/t intentional overdose. Pt tells me that his ex-girlfriend and the rest of his friends were planning a trip for spring. On Tuesday, he was told that he would be excluded from this trip. He was making statements about harming himself to his friends, ex-girlfriend, and parents at that time which prompted his ex- girlfriend to call the police to check on him. This resulted in him being brought to the ER for evaluation. Last night, pt states he drank "a few drinks" and didn't remember anything after that. He does tell me that he took lexapro, adderall, and benadryl with the intent to end his life. He had a previous suicide attempt last year. He states "I guess I'm not very good at killing myself." He denies current thoughts of suicide/self harm. He does note to me that he is not interested in inpatient behavioral health at [facility] because he felt that it did not benefit him last time. He also notes this odd sensation of seeing people in his room that aren't there. He describes as when he starts to fall asleep and might think that someone is in the room with him and he may respond to them. He denies overtly hearing voices. He smokes cannabis occasionally. He denies other drug use. He drinks alcohol 2-3 days per week with his last drink being last night. He has never withdrawn from alcohol. He has dealt with anxiety and depression for a long time. He states the only medications he was taking daily were lexapro and adderall." the following notes by the ED psychiatric rehabilitation case coordinator: 05/03/2023: "Met with the patient during Dr. Cisneros examination to complete Mental Health Brief and Suicide Risk assessments. The patient reports Im alright history of depression my whole life, as well as passive suicidal ideation but not plan or intent. He reports he has a history of overdose last year, but reports he isnt to that point yet. The patient reports he has a therapist he sees weekly (from his home area and last seen yesterday) and is linked with [facility]. He reports he has been discussing his passive suicidal thoughts with his therapist and doesnt feel he needs inpatient treatment at this time. 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 Medical clearance explained. Patient arrived on a [address] 302 warrant. Petioning statement completed by Rika Lobo (friend of ex-girlfriend) and reads: [place], [place], 05/02/23 @5:50pm until now concerning texts expressing wanting to kill himself: Im fed up with this world, theres nothing here for me; I dont know why I am still on this earth; I know it will be much more peaceful that whatever I am living right now. Tis has been a pattern of behavior. Received texts of suicidal ideation on 04/14/22 (?) If I decided to kill myself, then thats my decision (this was in [place], [place])." "Met with the patient to complete Psychiatric Mental Health Evaluation. The patient continues to deny active suicidality / plan or intent. He reports having passive suicidal ideations, but he reports this is a chronic thing for him. He reports his main stressor is school and that this is also where most of his anxiety comes from (mainly when work is at a high volume or around test time). The patient reports his depression is the same as usual, with feelings of anergia and anhedonia. The patient admits again to occasional alcohol use as well as some marijuana use (tox screen negative). The patient denies any problems with appetite or sleep, denies any hallucinations or delusional thinking and denies any history of self-injurious behavior. Discussed assessment with Dr. Stanley and he is willing to discharge the patient if the patient completes a safety plan. Patient completed safety plan, listing Eliceo Rdz ([phone]) who was contacted by phone and expresses no concerns for the patients safety and is willing to be his support person." 05/06/2023: "Petitioning statement by patients roommate reads, "Juanito went missing on Tuesday 05/02 and had texted his ex-girlfriend something along the lines of I dont know what this world has for me anymore. I had talked with him the next morning and he told me that nothing brings him adama and that the world is stewart to him. He also said that his depression is very severe that it drains him to the point where it makes every daily task difficult. My roommate asked him why he is drinking so much tonight, 05/05, and he said, Im going to drink until I . Pt presents to the ED after a significant overdose. Medics who brought the pt in stated, "It looked like he emptied the medicine cabinet."" and the following note by thepsychiatric liaison nurse: "Met with pt for initial consult after intentional polypharmacy OD on Adder al, Lexapro, Klonopin and Benadryl as well as ETOH. States he impulsively took overdose after he was excluded from upcoming spring break trip due to recent breakup with girlfriend. He states he and girlfriend broke up last month but they share the same friend group. He found out he was excluded from this trip on Tuesday and increasingly became more and more angry over this. He states he does not remember anything after overdose. He did not call for help. His roommates found him. He is remorseful over attempt and glad he was unsuccessful of attempt. He is denying any current SI. Admits when he took overdose he stated he did not care if he . 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 He has a 3.5 and reports doing well in school. He states his last hospitalization on was not beneficial as he stated it made him feel worse because he was not able to complete his school obligations. Inpt at [facility] after previous suicide attempt by OD in July 01. Denies access to guns. He reports previous medication trials include Prozac, Klonopin, Wellbutrin, Cymbalta and Remeron. He reports he drinks 2-3 weekly and has decreased his amount of ETOH he consumes. He reports he sees Dr. Felix thru telehealth ([phone]) and therapist Evelyn Rossi [phone] ext [phone]. EDUAR's obtained. He is unsure at this time if he is willing to sign in for inpt treatment at this time. His parents are present in the room and are supportive " Review of the medical record reveals a recent previous ED visit with section 302 petition when he was released to home. He was admitted here in June 2022. A urine toxicology screen was positive for metabolites of amphetamine and MDMA. BAL was 77.8 mg/dL. Pt endorses above reports. However, he insists that he should be discharged to home and that this would be safe. When reminded that he'd said the same 3 days ago and was clearly not safe, pt insisted that his roommates are supportive. I reminded him that those same roommates are very concerned about him and that he did not tell any of them of his plan to overdose. His primary argument in favor of safety actually seems to be that he was admitted here a year ago and didn't like it. He insists this is the only time he's overdosed, yet the June 2022 admission was for overdose on all the medications he had at the time and was also in the context of alcohol use. He denies ever having taken MDMA, but at his previous admission he reported recent use of MDMA. I met with pt and his parents together after I spoke with him alone. They voiced marked concern about his safety but he couldn't be convinced to agree to admission. I told him that he could agree to admission or it could be done involuntarily. A short time after I left his parents left the room in tears asking to take him home. Past Psychiatric History Current Psychiatric Diagnosis: depression, anxiety, alcohol use disorder Previous Psych Admissions: [facility] June 2022 following overdose Do You Have Access To A Gun?: No History of Previous Suicide Attempt: Yes Describe Attempts in the Past: overdose Allergies Allergy/AdvReac Type Severity Reaction Status Date / Time sulfamethoxazole Allergy Intermediate Rash Verified 06/28/22 12:06 [From Bactrim] trimethoprim [From Bactrim] Allergy Intermediate Rash Verified 06/28/22 12:06 Home Medications Medication Instructions Recorded Confirmed Type clonazepam 0.5 mg disintegrating 0.5 mg PO DAILY PRN Anxiety 05/06/23 05/06/23 History tablet dextroamphetamine-amphetamine ER 25 mg PO DAILY 05/06/23 05/06/23 History 25 mg 24hr capsule,extend release (Adderall XR) escitalopram oxalate 20 mg tablet 20 mg PO DAILY 05/06/23 05/06/23 History (Lexapro) Patient History Medical History (Updated 05/06/23 @ 04:56 by Tomas Singletary MD) Intentional overdose Social History Smoking Status: Never smoker Tobacco Type: Cigarettes and E-cigarettes / Vaping Second Hand Exposure: No; Do You Dip or Chew Tobacco: No; Tobacco Cessation Education Requested by Patient: No Hx Alcohol Use: Yes Alcohol type: beer and hard liquor Hx Substance Use: No Preferred Language: Divehi Communication Ability: Effective Engine Tester Required: No Beliefs That Will Affect Care: None Current Living Situation: Other Current Living Situation Comment: 6 male roomates Other Information That Helps Us Care for You: No Feels Safe at Home: Yes Safety Concerns: Feels Safe At This Time Gender Identity: Male Assistive Devices: None Physical Exam Psychiatric: Orientation: alert, oriented to person, oriented to place and oriented to time; + uncooperative Apperance: appropriately dressed, appropriately groomed and appeared stated age Eye Contact: + poor eye contact Motor Behavior: + psychomotor agitation (restless) Speech: normal rate/rhythm/volume of speech Affect: + irritable affect Mood: + angry mood Thought Process: + concrete thought process Thought Content: + cognitive distortions and reality based without delusions Suicidal Thoughts: denies suicidal thoughts, denies suicidal plan and denies suicidal intent Homicidal Thoughts: denies homicidal thoughts Hallucinations: no auditory hallucinations and no visual hallucinations Cognition: remote memory grossly intact, attention grossly intact and language grossly intact; + recent memory not intact (no recall of overdose) Estimated Intelligence: consistent with education level Insight: + severely impaired insight Judgment: + severely impaired judgement Vital Signs (Past 24 Hours): Last Vital Signs Temp 37.0 C 05/06/23 02:01 Pulse 78 05/06/23 16:00 Resp 15 05/06/23 20:18 BP 133/84 05/06/23 16:00 Pulse Ox 91 05/06/23 16:00 O2 Del Method Room Air 05/06/23 15:00 Exam Statement: Physical exams were performed in the ED and by the admitting hospitalist for the purposes of medical clearance. I accept those physicals as correct and adequate and have incorporated that information into my assessment. Review of Systems denies any symptoms Coding Level of Care Code 39987 [facility] Intl Hosp Care Lvl 3 Diagnoses Persistent depressive disorder with anxious distress, currently severe F34.1 ARSH (generalized anxiety disorder) F41.1 Alcohol use disorder, moderate, dependence F10.20 Time Spent (min) 86
[2023-05-07 04:33] LABS: Hemoglobin 14.8 g/dl (14.0-18.0); Mean Corpuscular Hemoglobin 31.4 pg (25.0-34.0); Mean Corpuscular Hgb Conc 33.6 g/dL (32.0-36.0); Mean Corpuscular Volume 93.2 fL (80.0-100.0); Mean Platelet Volume 11.3 fL (9.4-12.4); Platelet Count 215 K/uL (130-400); RDW Coefficient of Variation 12.5 % (11.5-14.5); RDW Standard Deviation 43.3 fL (36.4-46.3); Red Blood Count 4.72 M/uL (4.70-6.10); White Blood Count 6.73 K/ul (4.8-10.8)
[2023-05-07 04:49] LABS: BUN Creatinine Ratio 9.8 (10-20); Calcium 9.8 mg/dl (8.6-10.3); Creatinine Clr Calc Pharmacy 84.3 ml/min; Est GFR (African American) 87.3 ml/min; Est GFR (Non-African American) 75.3 ml/min; Potassium 4.5 mmol/L (3.5-5.1)
--- NOTE | 2023-05-07 09:36 | Hospitalist Progress Note ---
Date of Service May 07, 2023 Assessment & Plan (1) Intentional overdose: Plan: Pt is a 22 yo male with PMH of anxiety and depression presenting to the ER via EMS d/t intentional overdose. Patient is medically stable from medicine standpoint. Awaiting inpatient psych placement. #Intentional drug overdose -EKG on admission showing sinus tachycardia, QTc 436 -UDS positive for ecstasy. Ethyl alcohol level 78. -1:1 observation, safe tray, suicide precautions -Psychiatry consulted -Patient is now 302 (5 days involuntary hold). Does not seem to be good fit for [facility] due to previous bad experience. State delegate will be conducting bed search with hope for direct transfer/placement to facility. #MDD/ARSH -Per pt, he was being treated as an outpatient with Lexapro and Adderall -Medications on hold for now #Sinus tachycardia, resolved -Likely physiologic response in aftermath of Adderall/Lexapro/Benadryl overdose -Telemetry monitoring #Leukocytosis, resolved -WBC 14 on admission -Likely stress demargination #Hyperbilirubinemia -TB 1.7 on admission -No jaundice on exam, normal AST/ALT -Likely reactive Diet: regular, safe tray VTE ppx: ambulation Code: full Dispo: med tele (2) Depression: (3) ARSH (generalized anxiety disorder): (4) Alcohol intoxication: Admission and Anticipated Discharge Date Admission Date: May 06, 2023 Supervising Physician Co-Signing Physician Notes I also saw the patient confirmed kruger portions of the clinical history and physical examination. I agree the impression and plan as noted in the resident documentation above. Remains in one-to-one observation in the emergency department behavioral health unit. 302 and a bed search is currently underway Exam 117/77, 67, 16, 37.4, 90% on room air Data The mild leukocytosis seen yesterday has completely resolved. LFTs are normal except for a mild elevation of total bilirubin (1.6); this had been noted previous previous admissions as well Impression and plan Intentional overdose/suicide attempt Mild sinus tachycardia, resolved Leukocytosis, resolved Mild elevation of total bilirubin, question Gilbert's or related to alcohol/medications; asymptomatic 302; awaiting placement Remains in behavioral health ED unit Medically cleared Subjective Patient seen at bedside. Doing well given the circumstances. No acute changes. Not much of an appetite. Trying to stay hydrated. Review of Systems Review of Systems: All systems reviewed & are unremarkable except as noted in HPI & below Physical Exam Physical Exam: Constitutional: in no acute distress, pleasant and normal affect, intact memory. AOx3. Vitals as above. HEENT: No scleral injection or discharge. Moist mucous membranes. Neck: Supple without lymphadenopathy or thyromegaly. Trachea midline. Lungs: CTAB. No wheezes/rales/rhonchi. Cardiac: RRR. No murmurs. No lower extremity edema. 2+ distal peripheral pulses. Abdomen: Soft, nontender, and nondistended.No guarding. No hepatosplenomegaly. MSK: No cyanosis or clubbing. Extremities motor strength 5/5. Skin: No rashes, warm, dry. Neurologic: Grossly intact cranial nerves and 2+ patellar tendon reflexes bilaterally. PERRL. Results & Data Results & Data Vital Signs (Past 12 Hours) Vital Signs Temp Pulse Pulse Resp BP Pulse Ox O2 Del Method 05/07/23 07:37 61 16 108/57 L 98 Room Air 05/07/23 07:10 60 05/07/23 05:02 66 05/07/23 05:00 37.4 C 63 14 134/78 100 Room Air Laboratory Results 05/07/23 Range/Units 04:02 WBC 6.73 (4.8-10.8) K/ul RBC 4.72 (4.70-6.10) M/uL Hgb 14.8 (14.0-18.0) g/dl Hct 44.0 (42.0-52.0) % MCV 93.2 (80.0-100.0) fL MCH 31.4 (25.0-34.0) pg MCHC 33.6 (32.0-36.0) g/dL RDW Std Deviation 43.3 (36.4-46.3) fL RDW Coeff of Chelita 12.5 (11.5-14.5) % Plt Count 215 (130-400) K/uL MPV 11.3 (9.4-12.4) fL Sodium 140 (136-145) mmol/L Potassium 4.5 (3.5-5.1) mmol/L Chloride 106 (98-107) mmol/L Carbon Dioxide 28 (21-32) mmol/L Anion Gap 6 (3-11) BUN 13 (6-23) mg/dl Creatinine 1.33 (0.6-1.4) mg/dl Est Cr Clr Drug Dosing 84.3 ml/min Est GFR ( Amer) 87.3 ml/min Est GFR (Non-Af Amer) 75.3 ml/min BUN/Creatinine Ratio 9.8 L (10-20) Glucose 105 H (70-99(Fasting)) mg/dl Calcium 9.8 (8.6-10.3) mg/dl Resident Activity Tracking Resident Involvement: Resident Care Provided Care Provided: Adult [facility] Medicine (2) Depression Active/Remission status: currently active Depression Type: major depressive disorder Major depression episode severity: unspecified Major depression recurrence: recurrent Qualified Code(s): F33.9 - Major depressive disorder, recurrent, unspecified
[2023-05-07 10:08] LABS: Albumin Level 4.5 gm/dl (3.4-5.0); Bilirubin Direct 0.2 mg/dl (0-0.2); Bilirubin,Total 1.6 mg/dl (0.2-1.0)
--- NOTE | 2023-05-07 16:08 | Discharge Summary ---
Date of Service May 07, 2023 Admission HPI Per Admitting Provider Pt is a 22 yo male with PMH of anxiety and depression presenting to the ER via EMS d/t intentional overdose. Pt tells me that his ex-girlfriend and the rest of his friends were planning a trip for spring. On Tuesday, he was told that he would be excluded from this trip. He was making statements about harming himself to his friends, ex- girlfriend, and parents at that time which prompted his ex-girlfriend to call the police to check on him. This resulted in him being brought to the ER for evaluation. Last night, pt states he drank "a few drinks" and didn't remember anything after that. He does tell me that he took lexapro, adderall, and benadryl with the intent to end his life. He had a previous suicide attempt last year. He states "I guess I'm not very good at killing myself." He denies current thoughts of suicide/self harm. He does note to me that he is not interested in inpatient behavioral health at [facility] because he felt that it did not benefit him last time. He also notes this odd sensation of seeing people in his room that aren't there. He describes as when he starts to fall asleep and might think that someone is in the room with him and he may respond to them. He denies overtly hearing voices. He smokes cannabis occasionally. He denies other drug use. He drinks alcohol 2-3 days per week with his last drink being last night. He has never withdrawn from alcohol. He has dealt with anxiety and depression for a long time. He states the only medications he was taking daily were lexapro and adderall. He has no other chronic medical conditions. In the ER, pt was hypertensive and tachycardic. He received 2L of NS. Principal Diagnosis intentional overdose Discharge Exam Constitutional: in no acute distress, pleasant and normal affect, intact memory. AOx3. Vitals as above. HEENT: No scleral injection or discharge. Moist mucous membranes. Neck: Supple without lymphadenopathy or thyromegaly. Trachea midline. Lungs: CTAB. No wheezes/rales/rhonchi. Cardiac: RRR. No murmurs. No lower extremity edema. 2+ distal peripheral pulses. Abdomen: Soft, nontender, and nondistended.No guarding. No hepatosplenomegaly. MSK: No cyanosis or clubbing. Extremities motor strength 5/5. Skin: No rashes, warm, dry. Neurologic: Grossly intact cranial nerves and 2+ patellar tendon reflexes bi laterally. PERRL. Discharge Data Allergies Allergy/AdvReac Type Severity Reaction Status Date / Time sulfamethoxazole Allergy Intermediate Rash Verified 06/28/22 12:06 [From Bactrim] trimethoprim [From Bactrim] Allergy Intermediate Rash Verified 06/28/22 12:06 Consultations 05/06/23 06:00 Consult Psychiatry Routine 05/06/23 06:04 ED Decision to Admit Stat 05/06/23 07:58 Consult Behavioral Health Liaison Routine Ordered Studies Laboratory Results WBC 6.73 K/ul (4.8-10.8) 05/07/23 04:02 RBC 4.72 M/uL (4.70-6.10) 05/07/23 04:02 Hgb 14.8 g/dl (14.0-18.0) 05/07/23 04:02 Hct 44.0 % (42.0-52.0) 05/07/23 04:02 MCV 93.2 fL (80.0-100.0) 05/07/23 04:02 MCH 31.4 pg (25.0-34.0) 05/07/23 04:02 MCHC 33.6 g/dL (32.0-36.0) 05/07/23 04:02 RDW Std Deviation 43.3 fL (36.4-46.3) 05/07/23 04:02 RDW Coeff of Chelita 12.5 % (11.5-14.5) 05/07/23 04:02 Plt Count 215 K/uL (130-400) 05/07/23 04:02 MPV 11.3 fL (9.4-12.4) 05/07/23 04:02 Immature Gran % (Auto) 0.4 % 05/06/23 01:55 Neut % (Auto) 81.8 % 05/06/23 01:55 Lymph % (Auto) 12.4 % 05/06/23 01:55 Todd % (Auto) 4.9 % 05/06/23 01:55 Eos % (Auto) 0.2 % 05/06/23 01:55 Baso % (Auto) 0.3 % 05/06/23 01:55 Neut # (Auto) 11.45 K/uL (1.40-6.50) H 05/06/23 01:55 Lymph # (Auto) 1.73 K/uL (1.20-3.40) 05/06/23 01:55 Todd # (Auto) 0.68 K/uL (0.11-0.59) H 05/06/23 01:55 Eos # (Auto) 0.03 K/uL (0.00-0.50) 05/06/23 01:55 Baso # (Auto) 0.04 K/uL (0.00-0.20) 05/06/23 01:55 Immature Gran # (Auto) 0.05 K/uL (0.01-0.20) 05/06/23 01:55 PT 11.5 Seconds (9.0-12.0) 05/06/23 03:12 INR 1.1 (0.9-1.1) 05/06/23 03:12 Sodium 140 mmol/L (136-145) 05/07/23 04:02 Potassium 4.5 mmol/L (3.5-5.1) 05/07/23 04:02 Chloride 106 mmol/L (98-107) 05/07/23 04:02 Carbon Dioxide 28 mmol/L (21-32) 05/07/23 04:02 Anion Gap 6 (3-11) 05/07/23 04:02 BUN 13 mg/dl (6-23) 05/07/23 04:02 Creatinine 1.33 mg/dl (0.6-1.4) 05/07/23 04:02 Est Cr Clr Drug Dosing 84.3 ml/min 05/07/23 04:02 Est GFR ( Amer) 87.3 ml/min 05/07/23 04:02 Est GFR (Non-Af Amer) 75.3 ml/min 05/07/23 04:02 BUN/Creatinine Ratio 9.8 (10-20) L 05/07/23 04:02 Glucose 105 mg/dl (70-99(Fasting)) H 05/07/23 04:02 Calcium 9.8 mg/dl (8.6-10.3) 05/07/23 04:02 Magnesium 2.1 mg/dl (1.7-2.4) 05/06/23 01:55 Total Bilirubin 1.6 mg/dl (0.2-1.0) H 05/07/23 04:02 Direct Bilirubin 0.2 mg/dl (0-0.2) 05/07/23 04:02 AST 26 U/L (13-39) 05/07/23 04:02 ALT 19 U/L (7-52) 05/07/23 04:02 Alkaline Phosphatase 56 U/L (34-104) 05/07/23 04:02 Total Creatine Kinase 299 U/L (30-223) H 05/06/23 01:55 Troponin I High Sens 2.4 pg/ml (0-20) 05/06/23 01:55 Total Protein 7.0 gm/dl (6.0-8.3) 05/07/23 04:02 Albumin 4.5 gm/dl (3.4-5.0) 05/07/23 04:02 Globulin 3.0 gm/dl (2.5-4.0) 05/06/23 01:55 Albumin/Globulin Ratio 1.6 (0.9-2) 05/06/23 01:55 Urine Color Yellow 05/06/23 05:00 Urine Appearance Clear (Clear) 05/06/23 05:00 Urine pH 5.5 (4.5-7.5) 05/06/23 05:00 Ur Specific [place] 1.009 (1.000-1.030) 05/06/23 05:00 Urine Protein Negative (Negative) 05/06/23 05:00 Urine Glucose (UA) Negative (Negative) 05/06/23 05:00 Urine Ketones Negative (Negative) 05/06/23 05:00 Urine Blood Negative (Negative) 05/06/23 05:00 Urine Nitrite Negative (Negative) 05/06/23 05:00 Urine Bilirubin Negative (Negative) 05/06/23 05:00 Urine Urobilinogen Negative (Negative) 05/06/23 05:00 Ur Leukocyte Esterase Negative (Negative) 05/06/23 05:00 Salicylates < 3.0 mg/dl (3.0-30) L 05/06/23 01:55 Urine Opiates Screen Neg (Neg) 05/06/23 05:00 Ur Methadone, Qual Neg (Neg) 05/06/23 05:00 Acetaminophen < 3 ug/ml (10-30) L 05/06/23 01:55 Urine Barbiturates Neg (Neg) 05/06/23 05:00 Ur Phencyclidine (PCP) Neg (Neg) 05/06/23 05:00 U Amphetamin/Meth Scrn Pos (Neg) H 05/06/23 05:00 MDMA (Ecstasy) Screen Pos (Neg) H 05/06/23 05:00 U Benzodiazepines Scrn Neg (Neg) 05/06/23 05:00 Ur Cocaine Metabolite Neg (Neg) 05/06/23 05:00 U Marijuana (THC) Screen Neg (Neg) 05/06/23 05:00 Ethyl Alcohol mg/dL 77.8 mg/dl (<10.0) H 05/06/23 01:55 SARS-CoV-2, RNA, NAAT NEGATIVE (NEGATIVE) 05/06/23 02:00 Hospital Course (1) Intentional overdose: Pt is a 22 yo male with PMH of anxiety and depression presenting to the ER via EMS d/t intentional overdose. Patient is medically stable from medicine standpoint. Transport to inpatient psych facility this evening. #Intentional drug overdose -EKG on admission showing sinus tachycardia, QTc 436 -UDS positive for ecstasy. Ethyl alcohol level 78. -1:1 observation, safe tray, suicide precautions -Psychiatry consulted -Patient is now 302 (5 days involuntary hold). Does not seem to be good fit for [facility] due to previous bad experience. State delegate will be conducting bed search with hope for direct transfer/placement to facility --> placement found, transport tonight #MDD/ARSH -Per pt, he was being treated as an outpatient with Lexapro and Adderall -Medications on hold for now #Sinus tachycardia, resolved -Likely physiologic response in aftermath of Adderall/Lexapro/Benadryl overdose -Telemetry monitoring #Leukocytosis, resolved -WBC 14 on admission -Likely stress demargination #Hyperbilirubinemia -TB 1.7 on admission -No jaundice on exam, normal AST/ALT -Likely reactive (2) Depression: (3) ARSH (generalized anxiety disorder): (4) Alcohol intoxication: Total Time Total Time Spent Total Time Spent (In Minutes): 30 Discharge Plan Discharge Items Patient Disposition: Transfer Behavioral Health Fac Reason For Visit: INTENTIONAL OD Discharge Diagnosis: intentional overdose Activity: Resume your previous activity Non-emergency contact: Primary Care Provider Call non-emergency contact if: you have any medication questions Follow-up/Referrals: PCP,NO [Primary Care Provider] - Diet: Regular Addtl Attending Provider Instructions: Going to inpatient psych. Medications to be addressed at facility. Pending Studies at Discharge: No Stand-Alone Forms: My [facility] Medications and DC Order Prescriptions: Continued dextroamphetamine-amphetamine [Adderall XR] 25 mg Capsule,Extended Release 24hr 25 mg PO DAILY escitalopram oxalate [Lexapro] 20 mg Tablet 20 mg PO DAILY clonazepam [Klonopin] 0.5 mg Tablet,Disintegrating 0.5 mg PO DAILY PRN (Reason: Anxiety) Discharge Orders: Discharge Order (Routine); Ordered 05/07/23 Ordered By: Monster Woodson Admission Data Admit Date/Time: 05/06/23 06:00 Attending Provider: Leonides Chavez Admit Provider: Millie Arcos Primary Care Provider: PCP,NO Other Providers: Marisa Muñoz; Cathy Ramos; Urbano Diallo; Bob Talbot; Edson Le Supervising Physician Co-Signing Physician Notes I also saw the patient confirmed kruger portions of the clinical history and physical examination. I agree the impression and plan as noted in the resident documentation above. Remains in one-to-one observation in the emergency department behavioral health unit. 302 and a bed search is currently underway Exam 117/77, 67, 16, 37.4, 90% on room air Data The mild leukocytosis seen yesterday has completely resolved. LFTs are normal except for a mild elevation of total bilirubin (1.6); this had been noted previous previous admissions as well Impression and plan Intentional overdose/suicide attempt Mild sinus tachycardia, resolved Leukocytosis, resolved Mild elevation of total bilirubin, question Gilbert's or related to alcohol/medications; asymptomatic 302; awaiting transport to [facility] Remains in behavioral [facility] ED until transport arranged Medically cleared Resident Activity Tracking Resident Involvement: Resident Care Provided Care Provided: Adult Hospital Medicine
--- NOTE | 2023-05-08 05:38 | Billing Data ---
Date of Service May 08, 2023 Coding Level of Care Code 90646 INT INP/OBS CARE
[2023-05-10 17:12] LABS: Amphetamine Urine, Confirm >15000 ng/mL (<250); MDA negative; MDEA negative; MDMA (Ecstasy) Urine, Confirm negative; Methamphetamine, Ur Confirm NEGATIVE ng/mL (<250)
== END 2023-05-07 18:26 ==
LOC: EDINP 01:32 → ED 01:32 → SUATTDRO 06:00 → EDINP 05-07 18:03